=== PATIENT | female | born 1945 | race Caucasian/White ===

== ENCOUNTER 2019-12-22 20:36 | Emergency (ER) | payer MEDICARE, MEDICAID ==
[~2019-12-22] VITALS: Ht 149.8 cm; Wt 81.8 kg
[~2019-12-22 20:36] MED LIST: AC500T PO; ALBU0.8322 IH; ALBU8.5H2 IH; ALPR0.5T PO; AMLO10TA4 PO; ASPI-875 PO; BENZ200C25 PO; CALC-149 PO; CALC-78 PO; CARV12.53 PO; CETI10CA PO; CETI10TA17 PO; CHOL200035 PO; CLN.1T PO; CLOP75TA PO; DEXT1DRO7 OU; DULO60CA6 PO; FLUT16SP22 NS; FURO40TA4 PO; HYDR28.32 TOP; INSU100V SQ; INSU500V SC; INSU500V SQ; IPRA3AMP19 IH; KRIL1CAP2 PO; LIRA0.6P SQ; LORA10CA PO; LVF500T PO; MELO-15 PO; MELO-198 PO; MULT-608 PO; NTR.4SL SL; OLME1TAB25 PO; OMEG-12 PO; OMEG1CAP74 PO; OXYC-309 PO; OXYC-471 PO; OXYC1TAB87 PO; PNT40TEC PO; PREG75CA PO; RANI150C11 PO; RNT150T PO; ROSU20TA14 PO
[2019-12-22 20:45] VITALS: BP 206/94
--- NOTE | 2019-12-22 20:48 | ED Upper Extremity ---
General Chief Complaint: Upper Extremity Stated Complaint: SHOULDER PAIN Source: patient Exam Limitations: no limitations History of Present Illness Date Seen by Provider: Dec 22, 2019 Time Seen by Provider: 20:45 Initial Comments This is a 74-year-old female who presents via [facility] after sustaining a fall and injuring her left shoulder/arm. States she was taking out the trash when she slipped and fell and landed on her left side. Reports immediate sharp pain, rates 10/10, worse with movement. Denies hitting head, neck, no LOC. No other injuries reported. Allergies and Home Medications Allergies Coded Allergies: acetaminophen (Unverified Allergy, HIVES, 03/12/13) codeine (Unverified Allergy, COMA, 03/12/13) hydrocodone (Unverified Allergy, HIVES, 03/12/13) morphine (Unverified Allergy, NAUSEA VOMITING, 03/12/13) Home Medications Acetaminophen 500 Mg Tablet, 1-2 TAB PO Q6H PRN for PAIN, (Reported) TAKES 1-2 (500MG) TABLETS NEEDED FOR PAIN Albuterol 8.5 Gm Hfa.aer.ad, 2 PUFF IH Q6H PRN for SHORTNESS OF BREATH, (Reported) NEEDED FOR SHORTNESS OF BREATH Albuterol Sulfate/Ipratropium 3 Ml Solution, 3 ML IH Q4H PRN for SHORTNESS OF BREATH, (Reported) NEEDED FOR SHORTNESS OF BREATH Amlodipine Besylate 10 Mg Tablet, 10 MG PO DAILY, (Reported) Benzonatate 200 Mg Capsule, 200 MG PO TID PRN for COUGH, (Reported) NEEDED FOR COUGH Calcium Citrate/Vitamin D3 1 Each Tablet, 1 TAB PO DAILY, (Reported) Carvedilol 12.5 Mg Tablet, 12.5 MG PO BID, (Reported) WITH MEALS Cetirizine Hcl 10 Mg Capsule, 10 MG PO DAILY, (Reported) Cholecalciferol (Vitamin D3) 2,000 Unit Capsule, 2,000 UNIT PO DAILY, (Reported) Clonidine Hcl 0.1 Mg Tab, 0.1 MG PO TID, (Reported) Dextran 70/Hypromellose 1 Each Droperette, 1 DROP OU TID PRN for DRY EYES, (Reported) NEEDED FOR DRY EYES Duloxetine Hcl 60 Mg Capsule.dr, 60 MG PO HS, (Reported) Fluticasone Propionate 16 Gm Naspr, 2 SPRAYS NS DAILY, (Reported) Hydrocortisone 30 Gm Cr, 30 GM TOP PRN, (Reported) Insulin Regular Human Rec 500 U/Ml Vial, SQ DAILY, (Reported) MORNING BLOOD SUGAR READING LESS THAN 70 = NO INSULIN 70-99 = 3 UNITS 100- 149 = 11 UNITS 150-199 = 13 UNITS OVER 200 = 17 UNITS Insulin Regular Human Rec 500 U/Ml Vial, SC BID, (Reported) LUNCH AND DINNER BLOOD READING LESS THAN 70 = NO INSULIN 70-99 = 3 UNITS 100-149 = 8 UNITS 150-199 = 10 UNITS OVER 200 = 12 UNITS Krill Oil/[place]-3/Dha/Epa 1 Each Capsule, 1 CAP PO DAILY, (Reported) Liraglutide 0.6 Mg/0.1 Ml Pen.injctr, 6 MG SQ HS, (Reported) Meclofenamate Sodium 100 Mg Capsule, 100 MG PO DAILY, (Reported) Meloxicam 7.5 Mg Tablet, 7.5 MG PO DAILY, (Reported) Multivitamins 1 Tab Tablet, 1 TAB PO DAILY, (Reported) Nitroglycerin 0.4 Mg Tab, 0 SL PRN PRN, (Reported) 1 TABLET EVERY 5 MINUTES X 3 DOSES NEEDED FOR CHEST PAIN [place]/Hydrochlorothiazide 1 Tab Tablet, 1 TAB PO DAILY, (Reported) 40-25MG TABLET [place]-3/Dha/Epa/Fish Oil 1 Each Capsule.dr, 1 EACH PO DAILY, (Reported) Oxycodone HCl/Acetaminophen 1 Each Tablet, 1 EACH PO Q4H PRN for PAIN Prescribed by: RAPHAEL ZAPATA on 10/28/14 1014 Oxycodone HCl/Acetaminophen 1 Each Tablet, 1 EACH PO Q4H PRN for PAIN-SEVERE Prescribed by: REBECCA PÉREZ on 12/22/19 2131 Pantoprazole Sodium 40 Mg Tablet.dr, 40 MG PO DAILY, (Reported) Pregabalin 75 Mg Capsule, 75 MG PO Q12H, (Reported) Ranitidine Hcl 150 Mg Capsule, 150 MG PO BID, (Reported) Rosuvastatin Calcium 20 Mg Tablet, 20 MG PO HS, (Reported) Patient Home Medication List Home Medication List Reviewed: Yes Review of Systems Constitutional: no symptoms reported EENTM: no symptoms reported Respiratory: no symptoms reported Cardiovascular: no symptoms reported Gastrointestinal: no symptoms reported Musculoskeletal: see HPI Skin: no symptoms reported Psychiatric/Neurological: No Symptoms Reported Past Pqfvtbs-Kxlzxh-Uwumgw Hx Immunizations Up To Date Tetanus Booster (TDap): Less than 5yrs PED Vaccines UTD: No Date of Pneumonia Vaccine: Dec 12, 2013 Date of Influenza Vaccine: Nov 26, 2012 Past Medical History Asthma, Sleep Apnea Reproductive Disorders: No Female Reproductive Disorders: Denies Sexually Transmitted Disease: No HIV/AIDS: No UTI-Chronic Gastroesophageal Reflux, Chronic Constipation, Hiatal Hernia Arthritis, Fibromyalgia, Chronic Back Pain Diabetes, 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 Hearing Impairment: Denies Depression Adverse Reaction/Blood Tranf: No Family Medical History Family history: Arthritis 03 FATHER 09 SISTER Family history: Cardiovascular disease 03 FATHER Family history: Diabetes mellitus 03 MOTHER 09 BROTHER Family history: Gastrointestinal disease 09 BROTHER Family history: Hypertension 03 FATHER 03 MOTHER History of - respiratory disease 03 FATHER Psychotic disorder 03 MOTHER Physical Exam Vital Signs Vital Signs - First Documented 12/22/19 20:45 Temp 36.6 Pulse 75 Resp 18 B/P (MAP) 206/94 (131) Pulse Ox 98 O2 Delivery Nasal Cannula O2 Flow Rate 2.00 Capillary Refill : Height, Weight, BMI Height: 4'11.00" Weight: 235lbs. oz. 106.015611vg; BMI Method: General Appearance: WD/WN, no apparent distress HEENT: PERRL/EOMI, pharynx normal Neck: non-tender, full range of motion, supple, normal inspection Cardiovascular: regular rate, rhythm, no edema Respiratory: chest non-tender, lungs clear, normal breath sounds, no respiratory distress, no accessory muscle use Gastrointestinal: normal bowel sounds, non tender, soft Shoulder: deformity; No ecchymosis; limited ROM, pain, soft tissue tenderness Elbow/Forearm: normal inspection, non-tender, no evidence of injury Wrist: Yes no evidence of injury, Yes pain Neurologic/Tendon: normal sensation, normal motor functions, normal tendon functions, responds to pain Neurologic/Psychiatric: no motor/sensory deficits, alert, normal mood/affect, oriented x 3 Skin: normal color, warm/dry Limited range of motion, guarding left upper extremity. Neurovascular intact distal to injury. Progress/Results/Core Measures Results/Orders My Orders Orders - REBECCA PÉREZ APRN Shoulder, Left, 2 Views (12/22/19 20:45) Forearm, Left, 2 Views (12/22/19 20:45) Oxycodone/Apap 5/325mg Tablet (Percocet (12/22/19 21:45) Medications Given in ED Current Medications Medications Dose Ordered Sig/Rima Route Start Time Stop Time Status Last Admin Dose Admin Oxycodone/ Acetaminophen 1 tab ONCE ONCE PO 12/22/19 21:45 12/22/19 21:44 DC 12/22/19 21:38 1 TAB Vital Signs/I&O 12/22/19 20:45 Temp 36.6 Pulse 75 Resp 18 B/P (MAP) 206/94 (131) Pulse Ox 98 O2 Delivery Nasal Cannula O2 Flow Rate 2.00 Progress Progress Note : Progress Note Placed in shoulder immobilizer and ED. Tolerated well. Neurovascular intact pre- and post application of immobilizer. Discussed following up with orthopedic provider of choice, reviewed the plan of care and she is agreeable with plan. States has tolerated Oxycodone in the past and requested low dose for pain man agement. Diagnostic Imaging Diagonstic Imaging: Xray Plain Films/CT/US/NM/MRI: other (shoulder) Comments NAME: NEO BEVERLY MED REC#: [id number] PT STATUS: REG ER : 1945 PHYSICIAN: REBECCA PÉREZ APRN ADMIT DATE: 12/22/19/ER Signed Date of Exam:12/22/19 SHOULDER, LEFT, 2 VIEWS INDICATION: Left shoulder injury. COMPARISON: None. EXAMINATION: Two views of the left shoulder were obtained. FINDINGS: Acute slightly displaced proximal humeral fracture. Advanced degenerative change is seen involving the glenohumeral joint. There is no dislocation. IMPRESSION: Proximal humeral fracture. Dictated by: Dictated on workstation # [id number] Dict: 12/22/192109 Trans: 12/22/192128 [facility] [id number] Interpreted by: JHONATAN LANDA Electronically signed by: JHONATAN LANDA 12/22/192128 Diagonstic Imaging: Xray Plain Films/CT/US/NM/MRI: forearm Comments NAME: NEO BEVERLY MED REC#: [id number] PT STATUS: REG ER : 1945 PHYSICIAN: REBECCA PÉREZ APRN ADMIT DATE: 12/22/19/ER Signed Date of Exam:12/22/19 FOREARM, LEFT, 2 VIEWS INDICATION: Left forearm injury. COMPARISON: None. EXAMINATION: Two views of the left forearm were obtained. FINDINGS: No fracture or dislocation. Articular surfaces are age-appropriate. No foreign body is seen. IMPRESSION: No fracture or dislocation. Dictated by: Dictated on workstation # [id number] Dict: 12/22/192109 Trans: 12/22/192128 [facility] [id number] Interpreted by: JHONATAN LANDA Electronically signed by: JHONATAN LANDA 12/22/192128 Departure Impression Primary Impression: Proximal humerus fracture Disposition: 01 HOME, SELF-CARE Condition: Improved Departure-Patient Inst. Decision time for Depature: 21:20 Referrals: JACQUELYN FALK MD (PCP) Primary Care Physician Patient Instructions: How to Use a Shoulder Sling, Upper Arm Fracture Add. Discharge Instructions: Plan: 1. Discharge home. Keep shoulder immobilizer in place at all times, may remove for shower. Use shoulder sling while in the shower. 2. Take Hydrocodone 5/325mg tablet every 6 hours as needed for pain. 3. Follow up with Dr. Chanel next week. Office is [address] [place] [address] in [facility]. Please call [phone]. 4. May use ice 20 minutes at a time every 4-6 hours as needed for pain. 5. Return for any new or concerning symptoms. All discharge instructions reviewed with patient and/or family. Voiced understanding. Scripts Oxycodone HCl/Acetaminophen (Oxycodone-Acetaminophen 5-325) 1 Each Tablet 1 EACH PO Q4H PRN for PAIN-SEVERE MDD 6 for 7 Days, #30 TAB 0 Refills Prov: REEBCCA PÉREZ APRN 12/22/19 REBECCA PÉREZ APRN Dec 22, 2019 20:48
--- NOTE | 2019-12-22 21:13 | Diagnostic Imaging Report ---
INDICATION: Left shoulder injury. COMPARISON: None. EXAMINATION: Two views of the left shoulder were obtained. FINDINGS: Acute slightly displaced proximal humeral fracture. Advanced degenerative change is seen involving the glenohumeral joint. There is no dislocation. IMPRESSION: Proximal humeral fracture. Dictated by: Dictated on workstation # [id number]
--- NOTE | 2019-12-22 21:14 | Diagnostic Imaging Report ---
INDICATION: Left forearm injury. COMPARISON: None. EXAMINATION: Two views of the left forearm were obtained. FINDINGS: No fracture or dislocation. Articular surfaces are age-appropriate. No foreign body is seen. IMPRESSION: No fracture or dislocation. Dictated by: Dictated on workstation # [id number]
[2019-12-22] MEDS ORDERED: OXYC-471 PO (21:31)
[2019-12-22] MEDS ORDERED: oxyCODONE/APAP 5/325MG (PERCOCET 5) TABLET PO ONE (21:45)
== END 2019-12-22 21:44 | disposition home or self-care (01) ==
LOC: EDUNIT# 20:36 → ER 20:37
DX: S42.292A Other displaced fracture of upper end of left humerus, initial encounter for closed fracture (principal); K21.9 Gastro-esophageal reflux disease without esophagitis; G89.29 Other chronic pain; E11.9 Type 2 diabetes mellitus without complications; F32.9 Major depressive disorder, single episode, unspecified; M54.9 Dorsalgia, unspecified; Z82.61 Family history of arthritis; Z83.3 Family history of diabetes mellitus; Z82.49 Family history of ischemic heart disease and other diseases of the circulatory system; Z79.4 Long term (current) use of insulin; Z79.891 Long term (current) use of opiate analgesic; Z88.5 Allergy status to narcotic agent; Z88.6 Allergy status to analgesic agent; W01.0XXA Fall on same level from slipping, tripping and stumbling without subsequent striking against object, initial encounter
CPT/HCPCS: 73030; 73090; 99283

== ENCOUNTER 2020-01-26 04:23 | Emergency (ER) | payer MEDICARE, MEDICAID ==
[~2020-01-26] VITALS: Ht 180.3 cm; Wt 81.6 kg
--- NOTE | 2020-01-26 04:52 | ED General ---
General Chief Complaint: Glucose Problems Stated Complaint: HYPOGLYCEMIA History of Present Illness Date Seen by Provider: Jan 26, 2020 Time Seen by Provider: 04:47 Initial Comments Patient presenting to the emergency department for evaluation of a hypoglycemic episode as refill is having a hard time waking her up and they called 911 and her blood sugars found to be 40 and she was given an amp of D50 and her blood sugar went up to 190 and now she woke up completely almost immediately after getting the D50 and she says she feels back to normal denies any complaints. Family says that her blood sugar has been lower nights and patient reports she follows with an advanced practice nurse psychotherapist in [place] now. She is in no obvious distress with normal vital signs. Allergies and Home Medications Allergies Coded Allergies: acetaminophen (Unverified Allergy, HIVES, 03/12/13) codeine (Unverified Allergy, COMA, 03/12/13) hydrocodone (Unverified Allergy, HIVES, 03/12/13) morphine (Unverified Allergy, NAUSEA VOMITING, 03/12/13) Home Medications Acetaminophen 500 Mg Tablet, 1-2 TAB PO Q6H PRN for PAIN, (Reported) TAKES 1-2 (500MG) TABLETS NEEDED FOR PAIN Albuterol 8.5 Gm Hfa.aer.ad, 2 PUFF IH Q6H PRN for SHORTNESS OF BREATH, (Reported) NEEDED FOR SHORTNESS OF BREATH Albuterol Sulfate/Ipratropium 3 Ml Solution, 3 ML IH Q4H PRN for SHORTNESS OF BREATH, (Reported) NEEDED FOR SHORTNESS OF BREATH Amlodipine Besylate 10 Mg Tablet, 10 MG PO DAILY, (Reported) Benzonatate 200 Mg Capsule, 200 MG PO TID PRN for COUGH, (Reported) NEEDED FOR COUGH Calcium Citrate/Vitamin D3 1 Each Tablet, 1 TAB PO DAILY, (Reported) Carvedilol 12.5 Mg Tablet, 12.5 MG PO BID, (Reported) WITH MEALS Cetirizine Hcl 10 Mg Capsule, 10 MG PO DAILY, (Reported) Cholecalciferol (Vitamin D3) 2,000 Unit Capsule, 2,000 UNIT PO DAILY, (Reported) Clonidine Hcl 0.1 Mg Tab, 0.1 MG PO TID, (Reported) Dextran 70/Hypromellose 1 Each Droperette, 1 DROP OU TID PRN for DRY EYES, (Reported) NEEDED FOR DRY EYES Duloxetine Hcl 60 Mg Capsule.dr, 60 MG PO HS, (Reported) Fluticasone Propionate 16 Gm Naspr, 2 SPRAYS NS DAILY, (Reported) Hydrocortisone 30 Gm Cr, 30 GM TOP PRN, (Reported) Insulin Regular Human Rec 500 U/Ml Vial, SQ DAILY, (Reported) MORNING BLOOD SUGAR READING LESS THAN 70 = NO INSULIN 70-99 = 3 UNITS 100- 149 = 11 UNITS 150-199 = 13 UNITS OVER 200 = 17 UNITS Insulin Regular Human Rec 500 U/Ml Vial, SC BID, (Reported) LUNCH AND DINNER BLOOD READING LESS THAN 70 = NO INSULIN 70-99 = 3 UNITS 100-149 = 8 UNITS 150-199 = 10 UNITS OVER 200 = 12 UNITS Krill Oil/[place]-3/Dha/Epa 1 Each Capsule, 1 CAP PO DAILY, (Reported) Liraglutide 0.6 Mg/0.1 Ml Pen.injctr, 6 MG SQ HS, (Reported) Meclofenamate Sodium 100 Mg Capsule, 100 MG PO DAILY, (Reported) Meloxicam 7.5 Mg Tablet, 7.5 MG PO DAILY, (Reported) Multivitamins 1 Tab Tablet, 1 TAB PO DAILY, (Reported) Nitroglycerin 0.4 Mg Tab, 0 SL PRN PRN, (Reported) 1 TABLET EVERY 5 MINUTES X 3 DOSES NEEDED FOR CHEST PAIN [place]/Hydrochlorothiazide 1 Tab Tablet, 1 TAB PO DAILY, (Reported) 40-25MG TABLET [place]-3/Dha/Epa/Fish Oil 1 Each Capsule.dr, 1 EACH PO DAILY, (Reported) Oxycodone HCl/Acetaminophen 1 Each Tablet, 1 EACH PO Q4H PRN for PAIN Prescribed by: RAPHAEL ZAPATA on 10/28/14 1014 Oxycodone HCl/Acetaminophen 1 Each Tablet, 1 EACH PO Q4H PRN for PAIN-SEVERE Prescribed by: REBECCA PÉREZ on 12/22/19 2131 Pantoprazole Sodium 40 Mg Tablet.dr, 40 MG PO DAILY, (Reported) Pregabalin 75 Mg Capsule, 75 MG PO Q12H, (Reported) Ranitidine Hcl 150 Mg Capsule, 150 MG PO BID, (Reported) Rosuvastatin Calcium 20 Mg Tablet, 20 MG PO HS, (Reported) Patient Home Medication List Home Medication List Reviewed: Yes Review of Systems Review of Systems Constitutional: no symptoms reported EENTM: no symptoms reported Respiratory: no symptoms reported Cardiovascular: no symptoms reported Gastrointestinal: no symptoms reported Genitourinary: no symptoms reported Musculoskeletal: no symptoms reported Skin: no symptoms reported Psychiatric/Neurological: No Symptoms Reported All Other Systems Reviewed Negative Unless Noted: Yes Past Hkipcuy-Qiztbh-Cxhpon Hx Patient Social History Alcohol Use: Denies Use Recreational Drug Use: No 2nd Hand Smoke Exposure: No Recent Foreign Travel: No Contact w/Someone Who Travel: No Physical Abuse: No Sexual Abuse: No Mistreated: No Fear: No Immunizations Up To Date Tetanus Booster (TDap): Less than 5yrs PED Vaccines UTD: No Date of Pneumonia Vaccine: Dec 12, 2013 Date of Influenza Vaccine: Nov 26, 2012 Past Medical History Surgeries: Yes (CARPAL TUNNEL- BILAT, TOTAL KNEES X2, CATARACTS, R REVERSE SHOULDER,) Respiratory: Yes (WEARS O2 @ NIGHT, DOESNT USE CPAP, ) Asthma, Sleep Apnea Cardiac: Yes (STENTS PLACED 2005) Neurological: No Reproductive Disorders: No Female Reproductive Disorders: Denies Sexually Transmitted Disease: No HIV/AIDS: No UTI-Chronic Gastrointestinal: Yes (CONSTIPATION @ TIMES) Gastroesophageal Reflux, Chronic Constipation, Hiatal Hernia Musculoskeletal: Yes (FAILED KNEE REPLACEMENT, NEUROPATHY) Arthritis, Fibromyalgia, Chronic Back Pain Endocrine: Yes Diabetes, 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 Hearing Impairment: Denies Cancer: No Psychosocial: Yes (TAKES MEDS FOR DEPRESSION) Depression Integumentary: Yes (DIABETIC ULCERS ON ARMS AND LEG) Blood Disorders: No Adverse Reaction/Blood Tranf: No Family Medical History Family history: Arthritis 03 FATHER 09 SISTER Family history: Cardiovascular disease 03 FATHER Family history: Diabetes mellitus 03 MOTHER 09 BROTHER Family history: Gastrointestinal disease 09 BROTHER Family history: Hypertension 03 FATHER 03 MOTHER History of - respiratory disease 03 FATHER Psychotic disorder 03 MOTHER Physical Exam Vital Signs Capillary Refill : Height, Weight, BMI Height: 4'11.00" Weight: 235lbs. oz. 106.611253ga; 36.00 BMI Method: General Appearance: No Apparent Distress, WD/WN HEENT: PERRL/EOMI Neck: Supple Respiratory: Lungs Clear, No Respiratory Distress Cardiovascular: Regular Rate, Rhythm Gastrointestinal: Non Tender, Soft Back: Normal Inspection Neurologic/Psychiatric: Alert, Oriented x3, No Motor/Sensory Deficits Skin: Warm/Dry Progress/Results/Core Measures Suspected Sepsis SIRS Temperature: Pulse: Respiratory Rate: Blood Pressure / Mean: Results/Orders Lab Results Laboratory Tests Test 01/26/20 04:32 Range/Units Glucometer 192 H 70-110 MG/DL Vital Signs/I&O Capillary Refill : Progress Note : Progress Note Patient given a meal tray and her blood sugars stayed up. She has no complaints and appears well with normal vital signs. No need for extensive workup given she appears well with normal vital signs and is back to her neurologic baseline. I told her for the weekend to drop her short-acting and long-acting insulin by 5 units and to keep a close eye on her blood sugars and call her advanced practice nurse psychotherapist on Tuesday and reported what happened and get further instructions. Patient aware and agreeable with plan for discharge and verbalized understanding of the need for short-term follow-up and strict ED return precautions discussed inc luding worsening pain neurologic changes other general concerns. Departure Impression Primary Impression: Hypoglycemia Disposition: HOME, SELF-CARE Condition: Stable Departure-Patient Inst. Referrals: JACQUELYN FALK MD (PCP/Family) Primary Care Physician Patient Instructions: HYPOGLYCEMIA Add. Discharge Instructions: DROP EACH OF YOUR LONG ACTING AND SHORT ACTING INSULIN BY 5 UNITS. CHECK YOUR BLOOD SUGAR AT LEAST 4 TIMES A DAY AND DOCUMENT THEM. CALL YOUR MINISTER ON TUESDAY AND LET THEM KNOW WHAT HAPPENED, YOUR MEDICATION ADJUSTMENT AND HOW YOUR BLOOD SUGARS HAVE BEEN DOING. THANK YOU! All discharge instructions reviewed with patient and/or family. Voiced understanding. JUAN BANKS DO Jan 26, 2020 04:52
--- NOTE | 2020-01-26 04:59 | NUR ---
Pt was given a tv dinner to try to keep blood sugar up. BS will be rechecked at 0520 and 0550.
[2020-01-26] MEDS ORDERED: DEXTROSE 50% 50 ML (IMS) SYR ONE (05:22)
[2020-01-26] MEDS ORDERED: DEXTROSE 50% 50 ML (IMS) SYR IV ONE (05:30)
[2020-01-26 06:47] VITALS: BP 137/79
== END 2020-01-26 06:47 | disposition home or self-care (01) ==
LOC: EDUNIT# 04:23 → ER FS 04:27
DX: E11.649 Type 2 diabetes mellitus with hypoglycemia without coma (principal); G89.29 Other chronic pain; M54.9 Dorsalgia, unspecified; K21.9 Gastro-esophageal reflux disease without esophagitis; F32.9 Major depressive disorder, single episode, unspecified; J45.909 Unspecified asthma, uncomplicated; Z83.3 Family history of diabetes mellitus; Z82.61 Family history of arthritis; Z82.49 Family history of ischemic heart disease and other diseases of the circulatory system; Z95.5 Presence of coronary angioplasty implant and graft; Z88.5 Allergy status to narcotic agent; Z88.6 Allergy status to analgesic agent; Z79.4 Long term (current) use of insulin; Z79.891 Long term (current) use of opiate analgesic
CPT/HCPCS: 82962

== ENCOUNTER 2020-07-20 10:33 | Emergency (ER) | payer MEDICARE, MEDICAID ==
[~2020-07-20] VITALS: Ht 149.8 cm; Wt 81.6 kg
[~2020-07-20 10:33] MED LIST changes: -OXYC-471 PO; +OXYC1TAB11 PO
[2020-07-20] MEDS ORDERED: NS IV 1000 ML 1,000 ML IV STA (11:06)
[2020-07-20] MEDS ORDERED: ONDANSETRON 4 MG/2 ML (SDV) Z0FRAN IVP STA (11:07)
[2020-07-20 11:11] LABS: BASOPHILS % (AUTO) 0 % (0-10); EOSINOPHILS % (AUTO) 0 % (0-10); HEMATOCRIT 39 % (35-52); HEMOGLOBIN 13.2 G/DL (11.5-16.0); LYMPHOCYTES # (AUTO) 1.3 X 10^3 (1.0-4.0); LYMPHOCYTES % (AUTO) 14 % (12-44); MEAN CORPUSCULAR HEMOGLOBIN 29 PG (25-34); MEAN CORPUSCULAR HGB CONC 34 G/DL (32-36); MEAN CORPUSCULAR VOLUME 85 FL (80-99); MONOCYTES # (AUTO) 0.4 X 10^3 (0.0-1.0); MONOCYTES % (AUTO) 5 % (0-12); NEUTROPHILS # (AUTO) 7.8 X 10^3 (1.8-7.8); NEUTROPHILS % (AUTO) 81 % (42-75); PLATELET COUNT 309 10^3/uL (130-400); WHITE BLOOD COUNT 9.6 10^3/uL (4.3-11.0)
[2020-07-20 11:22] LABS: BILIRUBIN,URINE NEGATIVE (NEGATIVE); CLARITY,URINE CLEAR; COLOR,URINE YELLOW; GLUCOSE, URINE (UA) 3+ (NEGATIVE); KETONES,URINE TRACE (NEGATIVE); NITRITE,URINE NEGATIVE (NEGATIVE); PROTEIN,URINE NEGATIVE (NEGATIVE)
[2020-07-20 11:23] LABS: BACTERIA,URINE TRACE /HPF; LEUKOCYTE ESTERASE ,URINE NEGATIVE (NEGATIVE); RBC,URINE 0-2 /HPF; WBC,URINE 0-2 /HPF
--- NOTE | 2020-07-20 11:28 | ED GI ---
General Chief Complaint: Abdominal/GI Problems Stated Complaint: DIARRHEA Source of Information: Patient Exam Limitations: No Limitations History of Present Illness Date Seen by Provider: July 20, 2020 Time Seen by Provider: 10:35 Initial Comments 75 yo female presenting with 2 days of diarrhea. She did take imodium yesterday and it helped but then she still had 2 episodes of diarrhea today despite taking more imodium. She denies any blood in the diarrhea. No fever but has had chills. She has no pain with urination. She has not been able to eat due to lack of appetite and nothing sounds good. She denies any recent antibiotic use, camping, travel, change in food that she has eaten, ill contacts. Timing/Duration: 1-2 Days Activities at Onset: None Associated Symptoms: No Back Pain, No Chest Pain, No Diaphoresis; Fever/Chills (chills but denies fever), Fatigue; No Headache, No Heartburn, No Rash, No Shortness of Air, No Swelling/Mass in Abdomen, No Syncope, No Weakness Allergies and Home Medications Allergies Coded Allergies: acetaminophen (Unverified Allergy, HIVES, 03/12/13) codeine (Unverified Allergy, COMA, 03/12/13) hydrocodone (Unverified Allergy, HIVES, 03/12/13) morphine (Unverified Allergy, NAUSEA VOMITING, 03/12/13) Home Medications Acetaminophen 500 Mg Tablet, 1-2 TAB PO Q6H PRN for PAIN, (Reported) TAKES 1-2 (500MG) TABLETS NEEDED FOR PAIN Albuterol 8.5 Gm Hfa.aer.ad, 2 PUFF IH Q6H PRN for SHORTNESS OF BREATH, (Reported) NEEDED FOR SHORTNESS OF BREATH Albuterol Sulfate/Ipratropium 3 Ml Solution, 3 ML IH Q4H PRN for SHORTNESS OF BREATH, (Reported) NEEDED FOR SHORTNESS OF BREATH Amlodipine Besylate 10 Mg Tablet, 10 MG PO DAILY, (Reported) Benzonatate 200 Mg Capsule, 200 MG PO TID PRN for COUGH, (Reported) NEEDED FOR COUGH Calcium Citrate/Vitamin D3 1 Each Tablet, 1 TAB PO DAILY, (Reported) Carvedilol 12.5 Mg Tablet, 12.5 MG PO BID, (Reported) WITH MEALS Cetirizine Hcl 10 Mg Capsule, 10 MG PO DAILY, (Reported) Cholecalciferol (Vitamin D3) 2,000 Unit Capsule, 2,000 UNIT PO DAILY, (Reported) Clonidine Hcl 0.1 Mg Tab, 0.1 MG PO TID, (Reported) Dextran 70/Hypromellose 1 Each Droperette, 1 DROP OU TID PRN for DRY EYES, (Reported) NEEDED FOR DRY EYES Dicyclomine HCl 20 Mg Tablet, 20 MG PO QID PRN for diarrhea/nausea Prescribed by: DEBRA WHALEN on 07/20/20 1330 Duloxetine Hcl 60 Mg Capsule.dr, 60 MG PO HS, (Reported) Fluticasone Propionate 16 Gm Naspr, 2 SPRAYS NS DAILY, (Reported) Hydrocortisone 30 Gm Cr, 30 GM TOP PRN, (Reported) Insulin Regular Human Rec 500 U/Ml Vial, SQ DAILY, (Reported) MORNING BLOOD SUGAR READING LESS THAN 70 = NO INSULIN 70-99 = 3 UNITS 100- 149 = 11 UNITS 150-199 = 13 UNITS OVER 200 = 17 UNITS Insulin Regular Human Rec 500 U/Ml Vial, SC BID, (Reported) LUNCH AND DINNER BLOOD READING LESS THAN 70 = NO INSULIN 70-99 = 3 UNITS 100-149 = 8 UNITS 150-199 = 10 UNITS OVER 200 = 12 UNITS Krill Oil/Thor-3/Dha/Epa 1 Each Capsule, 1 CAP PO DAILY, (Reported) Liraglutide 0.6 Mg/0.1 Ml Pen.injctr, 6 MG SQ HS, (Reported) Meclofenamate Sodium 100 Mg Capsule, 100 MG PO DAILY, (Reported) Meloxicam 7.5 Mg Tablet, 7.5 MG PO DAILY, (Reported) Multivitamins 1 Tab Tablet, 1 TAB PO DAILY, (Reported) Nitroglycerin 0.4 Mg Tab, 0 SL PRN PRN, (Reported) 1 TABLET EVERY 5 MINUTES X 3 DOSES NEEDED FOR CHEST PAIN Olmesartn/Hydrochlorothiazide 1 Tab Tablet, 1 TAB PO DAILY, (Reported) 40-25MG TABLET Thor-3/Dha/Epa/Fish Oil 1 Each Capsule.dr, 1 EACH PO DAILY, (Reported) Oxycodone HCl/Acetaminophen 1 Each Tablet, 1 EACH PO Q4H PRN for PAIN Prescribed by: RAPHAEL ZAPATA on 10/28/14 1014 Oxycodone HCl/Acetaminophen 1 Each Tablet, 1 EACH PO Q4H PRN for PAIN-SEVERE Prescribed by: REBECCA PÉREZ on 12/22/192130 Pantoprazole Sodium 40 Mg Tablet.dr, 40 MG PO DAILY, (Reported) Pregabalin 75 Mg Capsule, 75 MG PO Q12H, (Reported) Ranitidine Hcl 150 Mg Capsule, 150 MG PO BID, (Reported) Rosuvastatin Calcium 20 Mg Tablet, 20 MG PO HS, (Reported) Patient Home Medication List Home Medication List Reviewed: Yes Review of Systems Review of Systems Constitutional: chills; No fever; malaise EENTM: No Symptoms Reported Respiratory: No Symptoms Reported Cardiovascular: No Symptoms Reported Gastrointestinal: See HPI; Denies Abdominal Pain; Diarrhea, Nausea; Denies Rectal Bleeding, Denies Vomiting Genitourinary: No Symptoms Reported Musculoskeletal: no symptoms reported Skin: no symptoms reported Psychiatric/Neurological: No Symptoms Reported Endocrine: No Symptoms Reported Past Lekdvsu-Etfdxg-Bghgfj Hx Past Med/Social Hx: Reviewed Nursing Past Med/Soc Hx Patient Social History Alcohol Use: Denies Use Smoking Status: Never a Smoker 2nd Hand Smoke Exposure: No Recent Hopitalizations: No Immunizations Up To Date Tetanus Booster (TDap): Less than 5yrs PED Vaccines UTD: No Date of Pneumonia Vaccine: Dec 12, 2013 Date of Influenza Vaccine: Nov 26, 2012 Seasonal Allergies Seasonal Allergies: No Past Medical History Surgeries: Yes (CARPAL TUNNEL- BILAT, TOTAL KNEES X2, CATARACTS, R REVERSE SHOULDER,) Respiratory: Yes (WEARS O2 @ NIGHT, DOESNT USE CPAP, ) Asthma, Sleep Apnea Cardiac: Yes (STENTS PLACED 2005) Neurological: No Reproductive Disorders: No Female Reproductive Disorders: Denies Sexually Transmitted Disease: No HIV/AIDS: No Genitourinary: No UTI-Chronic Gastrointestinal: Yes (CONSTIPATION @ TIMES) Gastroesophageal Reflux, Chronic Constipation, Hiatal Hernia Musculoskeletal: Yes (FAILED KNEE REPLACEMENT, NEUROPATHY) Arthritis, Fibromyalgia, Chronic Back Pain Endocrine: Yes Diabetes, 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 Hearing Impairment: Denies Cancer: No Psychosocial: Yes (TAKES MEDS FOR DEPRESSION) Depression Integumentary: Yes (DIABETIC ULCERS ON ARMS AND LEG) Blood Disorders: No Adverse Reaction/Blood Tranf: No Family Medical History Family history: Arthritis 03 FATHER 09 SISTER Family history: Cardiovascular disease 03 FATHER Family history: Diabetes mellitus 03 MOTHER 09 BROTHER Family history: Gastrointestinal disease 09 BROTHER Family history: Hypertension 03 FATHER 03 MOTHER History of - respiratory disease 03 FATHER Psychotic disorder 03 MOTHER Physical Exam Vital Signs Vital Signs - First Documented 07/20/20 10:33 Temp 36.5 Pulse 80 Resp 16 B/P (MAP) 196/77 (116) Pulse Ox 96 O2 Delivery Room Air Capillary Refill : Height/Weight/BMI Height: 4'11.00" Weight: 235lbs. oz. 106.519662ug; 25.00 BMI Method: General Appearance: WD/WN, no apparent distress HEENT: PERRL/EOMI; No pharynx normal (slightly dry mucous membranes) Neck: non-tender, full range of motion, supple, normal inspection Respiratory: chest non-tender, lungs clear, normal breath sounds Cardiovascular: normal peripheral pulses, regular rate, rhythm, systolic murmur (3/6 DELORIS) Gastrointestinal: non tender, soft, no pulsatile mass, abnormal bowel sounds (hyperactive); No distended, No guarding, No rebound, No tenderness Rectal: deferred Extremities: normal range of motion, normal capillary refill Neurologic/Psychiatric: alert, oriented x 3 Skin: normal color, warm/dry Images 1 - diffuse hyperactive bowel sounds but no tenderness to palpation Progress/Results/Core Measures Results/Orders Lab Results Laboratory Tests Test 07/20/20 10:59 07/20/20 11:05 07/20/20 11:15 Range/Units Glucometer 411 *H 70-110 MG/DL White Blood Count 9.6 4.3-11.0 10^3/uL Red Blood Count 4.56 4.35-5.85 10^6/uL Hemoglobin 13.2 11.5-16.0 G/DL Hematocrit 39 35-52 % Mean Corpuscular Volume 85 80-99 FL Mean Corpuscular Hemoglobin 29 25-34 PG Mean Corpuscular Hemoglobin Concent 34 32-36 G/DL Red Cell Distribution Width 13.2 10.0-14.5 % Platelet Count 309 130-400 10^3/uL Mean Platelet Volume 11.0 H 7.4-10.4 FL Immature Granulocyte % (Auto) 1 % Neutrophils (%) (Auto) 81 H 42-75 % Lymphocytes (%) (Auto) 14 12-44 % Monocytes (%) (Auto) 5 0-12 % Eosinophils (%) (Auto) 0 0-10 % Basophils (%) (Auto) 0 0-10 % Neutrophils # (Auto) 7.8 1.8-7.8 X 10^3 Lymphocytes # (Auto) 1.3 1.0-4.0 X 10^3 Monocytes # (Auto) 0.4 0.0-1.0 X 10^3 Eosinophils # (Auto) 0.0 0.0-0.3 10^3/uL Basophils # (Auto) 0.0 0.0-0.1 10^3/uL Immature Granulocyte # (Auto) 0.1 0.0-0.1 10^3/uL Sodium Level 134 L 135-145 MMOL/L Potassium Level 4.1 3.6-5.0 MMOL/L Chloride Level 96 L 98-107 MMOL/L Carbon Dioxide Level 27 21-32 MMOL/L Anion Gap 11 5-14 MMOL/L Blood Urea Nitrogen 9 7-18 MG/DL Creatinine 0.67 0.60-1.30 MG/DL Estimat Glomerular Filtration Rate > 60 BUN/Creatinine Ratio 13 Glucose Level 430 *H 70-105 MG/DL Calcium Level 9.7 8.5-10.1 MG/DL Corrected Calcium 9.9 8.5-10.1 MG/DL Total Bilirubin 0.6 0.1-1.0 MG/DL Aspartate Amino Transf (AST/SGOT) 28 5-34 U/L Alanine Aminotransferase (ALT/SGPT) 14 0-55 U/L Alkaline Phosphatase 122 40-136 U/L Total Protein 7.6 6.4-8.2 GM/DL Albumin 3.7 3.2-4.5 GM/DL Lipase 36 8-78 U/L Urine Color YELLOW Urine Clarity CLEAR Urine pH 6.0 5-9 Urine Specific [place] <=1.005 1.016-1.022 Urine Protein NEGATIVE NEGATIVE Urine Glucose (UA) 3+ H NEGATIVE Urine Ketones TRACE H NEGATIVE Urine Nitrite NEGATIVE NEGATIVE Urine Bilirubin NEGATIVE NEGATIVE Urine Urobilinogen 0.2 < = 1.0 MG/DL Urine Leukocyte Esterase NEGATIVE NEGATIVE Urine RBC (Auto) NEGATIVE NEGATIVE Urine RBC 0-2 /HPF Urine WBC 0-2 /HPF Urine Squamous Epithelial Cells 10-25 H /HPF Urine Crystals NONE /LPF Urine Bacteria TRACE /HPF Urine Casts NONE /LPF Urine Mucus NEGATIVE /LPF Urine Culture Indicated NO My Orders Orders - DEBRA WHALEN MD Comprehensive Metabolic Panel (07/20/20 11:06) Lipase (5/9/21 11:06) Ua Culture If Indicated (07/20/20 11:06) Ed Iv/Invasive Line Start (07/20/20 11:06) Cbc With Automated Diff (07/20/20 11:06) Ns Iv 1000 Ml (Sodium Chloride 0.9%) (07/20/20 11:06) Ondansetron Injection (Zofran Injectio (07/20/20 11:07) Ct Abdomen/Pelvis W (07/20/20 11:28) Iohexol Injection (Omnipaque 350 Mg/Ml 1 (07/20/20 11:45) Received Contrast (Hold Metformin- Contr (07/20/20 11:45) Sodium Chloride Flush (Catheter Flush Sy (07/20/20 11:45) Ns (Ivpb) (Sodium Chloride 0.9% Ivpb Bag (07/20/20 11:45) Stool Culture (07/20/20 12:05) Fecal Wbc (07/20/20 12:05) C Difficile Ag + Toxin A/B. (07/20/20 12:05) Parasite Complete Exam Stool (07/20/20 12:05) Isolation Central Supply Req (07/20/20 12:05) Occult Blood Stool (07/20/20 12:05) Diphenoxylate/Atropine Tablet (Lomotil T (07/20/20 12:50) Medications Given in ED Current Medications Medications Dose Ordered Sig/Rima Route Start Time Stop Time Status Last Admin Dose Admin Iohexol 100 ml ONCE ONCE IV 07/20/20 11:45 07/20/20 11:46 DC 07/20/20 11:57 100 ML Sodium Chloride 100 ml ONCE ONCE IV 07/20/20 11:45 07/20/20 11:46 DC 07/20/20 11:57 80 ML Vital Signs/I&O 07/20/20 07/20/20 10:33 13:32 Temp 36.5 36.5 Pulse 80 75 Resp 16 16 B/P (MAP) 196/77 (116) 177/81 (116) Pulse Ox 96 98 O2 Delivery Room Air Progress Progress Note #1: Progress Note Obtain basic labs and urinalysis as well as CT scan of the abdomen pelvis. If she has any diarrhea here we will send that for stool studies. Give IV fluids for hydration. Zofran 4 mg IV for nausea and upset stomach. Differential diagnosis includes gastroenteritis, diverticulitis, colitis, ischemic bowel, infectious diarrhea, food poisoning Progress Note #2: Progress Note Labs appear stable without acute significant abnormality other than hyperglycemia. Her CT scan did show diverticulosis but no diverticulitis. Reviewed with patient that we will give her medicine to completely stop her diarrhea since I cannot say if it was infectious or not. If it is infectious and I stop it it would fester and cause more issues with her bowel. We will give a single dose of Lomotil here to try and help with the diarrhea. Counseled to try Bentyl at home for nausea and vomiting see if it helps with her appetite. Check back with the clinic for continued concerns and problems. If she continues to have diarrhea collecting a specimen to do testing on would be most helpful. If she develops fever, uncontrolled vomiting, continued diarrhea or becomes dizzy or lightheaded return or seek medical care for further evaluation Diagnostic Imaging Diagonstic Imaging: CT Plain Films/CT/US/NM/MRI: abdomen, pelvis Comments [facility] [place], [place] NAME: [facility] REC#: [id number] PT STATUS: REG ER : 1945 PHYSICIAN: DEBRA WHALEN MD ADMIT DATE: 07/20/20/ER FS Signed Date of Exam:07/20/20 CT ABDOMEN/PELVIS W EXAMINATION: CT abdomen and pelvis with intravenous contrast. TECHNIQUE: Multiple contiguous axial images were obtained through the abdomen and pelvis after the uneventful administration of intravenous contrast. All CT scans use one or more of the following dose optimizing techniques: automated exposure control, MA and/or KvP adjustment based on patient size and exam type or iterative reconstruction. HISTORY: Diarrhea and nausea for 2 days. COMPARISON: None available. FINDINGS: The heart is unremarkable. The included lung bases are clear. The liver, spleen, pancreas, adrenal glands, and kidneys have a normal appearance. The gallbladder is surgically absent. There is no pathologically enlarged mesenteric or retroperitoneal adenopathy. The bowel loops are nondilated. Scattered diverticuli are seen in the descending and sigmoid colon without evidence of acute diverticulitis. There is no free fluid or free air. No acute osseous abnormalities. There is calcified aortic and iliac atherosclerotic plaque without aneurysm. Ureters and bladder are grossly normal. There is no free air, loculated collection, or adenopathy in the pelvis. IMPRESSION: 1. No acute abnormalities are seen in the abdomen and pelvis. No bowel obstruction, free fluid, or free air. 2. Scattered diverticuli without evidence of acute diverticulitis. Dictated by: Dictated on workstation # [id number] Dict: 07/20/20 1216 Trans: 07/20/20 1224 CV [id number] Interpreted by: QUYEN ALEXANDER DO Electronically signed by: QUYEN ALEXANDER DO 07/20/20 1224 Reviewed: Reviewed by Me Departure Impression Primary Impression: Diarrhea Qualified Codes: R19.7 - Diarrhea, unspecified Additional Impression: Hyperglycemia due to diabetes mellitus Disposition: 01 HOME, SELF-CARE Condition: Stable Departure-Patient Inst. Decision time for Depature: 13:27 Referrals: JACQUELYN FALK MD (PCP/Family) Primary Care Physician Patient Instructions: Diarrhea, Adult ED, How to Prevent High Blood Sugar Emergencies in Diabetes Add. Discharge Instructions: Try using the Dicyclomine (Bentyl) to help with slowing your diarrhea and settling your stomach so you can eat and drink better. If you can tolerate yogurt with active cultures that can help with replacing the good bacteria you need in your gut to help clear up the diarrhea. If you continue to have problems then check with clinic and you may need to provide a diarrhea stool specimen to have cultures and tests done to see what is causing the diarrhea. All discharge instructions reviewed with patient and/or family. Voiced understanding. Scripts Dicyclomine HCl (Dicyclomine HCl) 20 Mg Tablet 20 MG PO QID PRN for diarrhea/nausea for 5 Days, #20 TAB 0 Refills Prov: DEBRA WHALEN MD 07/20/20 DEBRA WHALEN MD July 20, 2020 11:28
[2020-07-20 11:29] LABS: BUN/CREATININE RATIO 13; CARBON DIOXIDE 27 MMOL/L (21-32); CHLORIDE 96 MMOL/L (98-107); CREATININE SERUM 0.67 MG/DL (0.60-1.30); GFR ESTIMATED > 60; POTASSIUM 4.1 MMOL/L (3.6-5.0); SODIUM 134 MMOL/L (135-145)
[2020-07-20 11:30] LABS: ALANINE AMINOTRANSFERASE 14 U/L (0-55); ALBUMIN 3.7 GM/DL (3.2-4.5); ALKALINE PHOSPHATASE 122 U/L (40-136); BILIRUBIN,TOTAL 0.6 MG/DL (0.1-1.0); CALCIUM 9.7 MG/DL (8.5-10.1); GLUCOSE 430 MG/DL (70-105); LIPASE 36 U/L (8-78); TOTAL PROTEIN 7.6 GM/DL (6.4-8.2)
[2020-07-20] MEDS ORDERED: IOHEXOL 350 MG/ML 100 ML (OMNIPAQUE 350) VIAL IV ONE (11:45)
[2020-07-20] MEDS ORDERED: NS 100 ML (IVPB) BAG IV ONE (11:45)
[2020-07-20] MEDS ORDERED: HOLD METFORMIN - RECEIVED CONTRAST 20 ML VIAL IV SCH (11:45)
[2020-07-20] MEDS ORDERED: CATHETER FLUSH 10 ML SYR IV PRN (11:45)
--- NOTE | 2020-07-20 12:23 | Diagnostic Imaging Report ---
EXAMINATION: CT abdomen and pelvis with intravenous contrast. TECHNIQUE: Multiple contiguous axial images were obtained through the abdomen and pelvis after the uneventful administration of intravenous contrast. All CT scans use one or more of the following dose optimizing techniques: automated exposure control, MA and/or KvP adjustment based on patient size and exam type or iterative reconstruction. HISTORY: Diarrhea and nausea for 2 days. COMPARISON: None available. FINDINGS: The heart is unremarkable. The included lung bases are clear. The liver, spleen, pancreas, adrenal glands, and kidneys have a normal appearance. The gallbladder is surgically absent. There is no pathologically enlarged mesenteric or retroperitoneal adenopathy. The bowel loops are nondilated. Scattered diverticuli are seen in the descending and sigmoid colon without evidence of acute diverticulitis. There is no free fluid or free air. No acute osseous abnormalities. There is calcified aortic and iliac atherosclerotic plaque without aneurysm. Ureters and bladder are grossly normal. There is no free air, loculated collection, or adenopathy in the pelvis. IMPRESSION: 1. No acute abnormalities are seen in the abdomen and pelvis. No bowel obstruction, free fluid, or free air. 2. Scattered diverticuli without evidence of acute diverticulitis. Dictated by: Dictated on workstation # [id number]
[2020-07-20] MEDS ORDERED: DIPHENOXYLATE/ATROPINE 2.5MG/0.025MG (LOMOTIL) TAB PO STA (12:50)
[2020-07-20] MEDS ORDERED: DICY20TA10 PO (13:30)
[2020-07-20 13:32] VITALS: BP 177/81
== END 2020-07-20 13:32 | disposition home or self-care (01) ==
LOC: EDUNIT# 10:33 → ER FS 10:34
DX: R19.7 Diarrhea, unspecified (principal); E11.65 Type 2 diabetes mellitus with hyperglycemia; K21.9 Gastro-esophageal reflux disease without esophagitis; G89.29 Other chronic pain; M54.9 Dorsalgia, unspecified; J45.909 Unspecified asthma, uncomplicated; F32.9 Major depressive disorder, single episode, unspecified; Z88.5 Allergy status to narcotic agent; Z88.6 Allergy status to analgesic agent; Z79.4 Long term (current) use of insulin; Z79.891 Long term (current) use of opiate analgesic; Z79.899 Other long term (current) drug therapy
CPT/HCPCS: 36415; 74177; 80053; 81000; 82947; 83690; 85025

== ENCOUNTER 2021-07-19 11:53 | Emergency (ER) | payer MEDICARE, MEDICAID ==
[~2021-07-19 11:53] MED LIST changes: +DICY20TA PO
[2021-07-19] MEDS ORDERED: LACTATED RINGERS 1,000 ML IV STA (12:08)
--- NOTE | 2021-07-19 12:08 | ED GI ---
General Stated Complaint: DIARRHEA; NAUSEA History of Present Illness Date Seen by Provider: July 19, 2021 Time Seen by Provider: 12:05 Initial Comments 76-year-old female presents with nausea, diarrhea and an episode of vomiting. She reports that she has felt "like crap" for like the last 3 days. She has had a subjective fever. She has been having diarrhea. She had her first episode of vomiting this morning. She is got some generalized body aches and malaise. An occasional mild cough but no shortness of breath. No chest pain, abdominal pain, urinary symptoms or flank pain reported. They report they have tried some Imodium and Gatorade at home. Allergies and Home Medications Allergies Coded Allergies: acetaminophen (Unverified Allergy, HIVES, 03/12/13) codeine (Unverified Allergy, COMA, 03/12/13) hydrocodone (Unverified Allergy, HIVES, 03/12/13) morphine (Unverified Allergy, NAUSEA VOMITING, 03/12/13) Patient Home Medication List Home Medication List Reviewed: Yes Acetaminophen (Tylenol) 500 Mg Tablet, 1-2 TAB PO Q6H PRN for PAIN, (Reported) Entered as Reported by: SHARRON ALCANTARA on 03/12/13 0947 Albuterol (Proair Hfa) 8.5 Gm Hfa.aer.ad, 2 PUFF IH Q6H PRN for SHORTNESS OF BREATH, (Reported) Entered as Reported by: SHARRON ALCANTARA on 03/12/13 0955 Albuterol Sulfate/Ipratropium (Duoneb 2.5-0.5 Mg/3 Ml Soln) 3 Ml Solution, 3 ML IH Q4H PRN for SHORTNESS OF BREATH, (Reported) Entered as Reported by: SHARRON ALCANTARA on 03/12/13 0958 Amlodipine Besylate (Norvasc) 10 Mg Tablet, 10 MG PO DAILY, (Reported) Entered as Reported by: SHARRON ALCANTARA on 03/12/13 0955 Benzonatate (Benzonatate) 200 Mg Capsule, 200 MG PO TID PRN for COUGH, (Rep orted) Entered as Reported by: SHARRON ALCANTARA on 03/12/13 0956 Calcium Citrate/Vitamin D3 (Citracal + D Maximum [place]) 1 Each Tablet, 1 TAB PO DAILY, (Reported) Entered as Reported by: SHARRON ALCANTARA on 03/20/13 1638 Carvedilol (Carvedilol) 12.5 Mg Tablet, 12.5 MG PO BID, (Reported) Entered as Reported by: SHARRON ALCANTARA on 03/12/13 0955 Cetirizine Hcl (Zyrtec) 10 Mg Capsule, 10 MG PO DAILY, (Reported) Entered as Reported by: MADALYN LAGUNAS on 10/16/14 1254 Cholecalciferol (Vitamin D3) (Vitamin D3) 2,000 Unit Capsule, 2,000 UNIT PO DAILY, (Reported) Entered as Reported by: SHARRON ALCANTARA on 03/20/13 1638 Clonidine Hcl (Catapres Tab) 0.1 Mg Tab, 0.1 MG PO TID, (Reported) Entered as Reported by: SHARRON ALCANTARA on 03/12/13 0955 Dextran 70/Hypromellose (Artificial Tears) 1 Each Droperette, 1 DROP OU TID PRN for DRY EYES, (Reported) Entered as Reported by: SHARRON ALCANTARA on 03/12/13 0947 Dicyclomine HCl (Dicyclomine HCl) 20 Mg Tablet, 20 MG PO QID PRN for diarrhea/nausea Prescribed by: DEBRA WHALEN on 07/20/20 1330 Duloxetine Hcl (Cymbalta) 60 Mg Capsule.dr, 60 MG PO HS, (Reported) Entered as Reported by: SHARRON ALCANTARA on 03/12/13 0955 Fluticasone Propionate (Flonase Nasal [place]) 16 Gm Naspr, 2 SPRAYS NS DAILY, (Reported) Entered as Reported by: SHARRON ALCANTARA on 03/12/13 0955 Hydrocortisone (Hydrocortisone Cr) 30 Gm Cr, 30 GM TOP PRN, (Reported) Entered as Reported by: MADALYN LAGUNAS on 10/16/14 1254 Insulin Regular Human Rec (Humulin R) 500 U/Ml Vial, SQ DAILY, (Reported) Entered as Reported by: SHARRON ALCANTARA on 03/20/13 1615 Insulin Regular Human Rec (Humulin R) 500 U/Ml Vial, SC BID, (Reported) Entered as Reported by: SHARRON ALCANTARA on 03/20/13 1619 Krill Oil/[place]-3/Dha/Epa ([place]-3 Krill Oil Softgel) 1 Each Capsule, 1 CAP PO DAILY, (Reported) Entered as Reported by: SHARRON ALCANTARA on 03/20/13 1638 Liraglutide (Victoza) 0.6 Mg/0.1 Ml Pen.injctr, 6 MG SQ HS, (Reported) Entered as Reported by: SHARRON ALCANTARA on 03/12/13 0947 Meclofenamate Sodium (Meclofenamate Sodium) 100 Mg Capsule, 100 MG PO DAILY, (Reported) Entered as Reported by: SHARRON ALCANTARA on 03/20/13 1638 Meloxicam (Meloxicam) 7.5 Mg Tablet, 7.5 MG PO DAILY, (Reported) Entered as Reported by: SHARRON ALCANTARA on 03/12/13 0956 Multivitamins (Multiple Vitamin) 1 Tab Tablet, 1 TAB PO DAILY, (Reported) Entered as Reported by: SHARRON ALCANTARA on 03/12/13 0947 Nitroglycerin (Nitrostat) 0.4 Mg Tab, 0 SL PRN PRN, (Reported) Entered as Reported by: SHARRON ALCANTARA on 03/12/13 0947 [place]artn/Hydrochlorothiazide (Benicar Hct 40-25 Mg Tablet) 1 Tab Tablet, 1 TAB PO DAILY, (Reported) Entered as Reported by: SHARRON ALCANTARA on 03/12/13 0955 [place]-3/Dha/Epa/Fish Oil (Fish Oil 1,000 Mg Ec Softgel) 1 Each Capsule.dr, 1 EACH PO DAILY, (Reported) Entered as Reported by: MADALYN LAGUNAS on 10/16/14 1254 Ondansetron (Ondansetron Odt) 4 Mg Tab.rapdis, 4 MG PO Q6H Prescribed by: CHAVA ROY on 07/19/21 1313 Oxycodone HCl/Acetaminophen (Oxycodone-Acetaminophen 5-325) 1 Each Tablet, 1 EACH PO Q4H PRN for PAIN Prescribed by: RAPHAEL ZAPATA on 10/28/14 1014 Oxycodone HCl/Acetaminophen (Oxycodone-Acetaminophen 5-325) 1 Each Tablet, 1 EACH PO Q4H PRN for PAIN-SEVERE Prescribed by: REBECCA PÉREZ on 12/22/19 2131 Pantoprazole Sodium (Protonix) 40 Mg Tablet.dr, 40 MG PO DAILY, (Reported) Entered as Reported by: SHARRON ALCANTARA on 03/12/13 09 Pregabalin (Lyrica) 75 Mg Capsule, 75 MG PO Q12H, (Reported) Entered as Reported by: SHARRON ALCANTARA on 03/12/13 09 Ranitidine Hcl (Ranitidine Hcl) 150 Mg Capsule, 150 MG PO BID, (Reported) Entered as Reported by: MADALYN LAGUNAS on 10/16/14 1254 Rosuvastatin Calcium (Crestor) 20 Mg Tablet, 20 MG PO HS, (Reported) Entered as Reported by: SHARRON ALCANTARA on 03/12/13 09 Sulfamethoxazole/Trimethoprim (Bactrim Ds Tablet) 1 Each Tablet, 1 EACH PO BID Prescribed by: CHAVA ROY on 07/19/21 1312 Review of Systems Review of Systems Constitutional: chills, fever, malaise EENTM: No Symptoms Reported Respiratory: See HPI, Cough; Denies Shortness of Air, Denies Wheezing Cardiovascular: Denies Chest Pain, Denies Irregular Heart Rate, Denies Lightheadedness Gastrointestinal: Denies Abdominal Pain; Diarrhea, Nausea, Poor Appetite, Vomiting Genitourinary: No Symptoms Reported Musculoskeletal: no symptoms reported Skin: no symptoms reported Psychiatric/Neurological: No Symptoms Reported Endocrine: No Symptoms Reported Past Gppihpd-Xiuhqk-Vthkup Hx Immunizations Up To Date Tetanus Booster (TDap): Less than 5yrs PED Vaccines UTD: No Seasonal Allergies Seasonal Allergies: No Past Medical History Surgeries: Yes (CARPAL TUNNEL- BILAT, TOTAL KNEES X2, CATARACTS, R REVERSE SHOULDER,) Respiratory: Yes (WEARS O2 @ NIGHT, DOESNT USE CPAP, ) Asthma, Sleep Apnea Cardiac: Yes (STENTS PLACED 2005) Neurological: No Reproductive Disorders: No Female Reproductive Disorders: Denies Sexually Transmitted Disease: No HIV/AIDS: No Genitourinary: No UTI-Chronic Gastrointestinal: Yes (CONSTIPATION @ TIMES) Gastroesophageal Reflux, Chronic Constipation, Hiatal Hernia Musculoskeletal: Yes (FAILED KNEE REPLACEMENT, NEUROPATHY) Arthritis, Fibromyalgia, Chronic Back Pain Endocrine: Yes Diabetes, 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 Hearing Impairment: Denies Cancer: No Psychosocial: Yes (TAKES MEDS FOR DEPRESSION) Depression Integumentary: Yes (DIABETIC ULCERS ON ARMS AND LEG) Blood Disorders: No Adverse Reaction/Blood Tranf: No Family Medical History Family history: Arthritis 03 FATHER 09 SISTER Family history: Cardiovascular disease 03 FATHER Family history: Diabetes mellitus 03 MOTHER 09 BROTHER Family history: Gastrointestinal disease 09 BROTHER Family history: Hypertension 03 FATHER 03 MOTHER History of - respiratory disease 03 FATHER Psychotic disorder 03 MOTHER Physical Exam Vital Signs Vital Signs - First Documented 07/19/21 12:00 Temp 35.0 Pulse 70 Resp 16 B/P (MAP) 158/66 (96) Pulse Ox 97 O2 Delivery Room Air Capillary Refill : Height/Weight/BMI Height: 4'11.00" Weight: 235lbs. oz. 106.993910cn; 36.00 BMI Method: General Appearance: no apparent distress HEENT: PERRL/EOMI Neck: non-tender, full range of motion Respiratory: lungs clear, normal breath sounds Cardiovascular: normal peripheral pulses, regular rate, rhythm Gastrointestinal: non tender, soft Extremities: non-tender, normal inspection Neurologic/Psychiatric: alert, normal mood/affect, oriented x 3 Skin: normal color, warm/dry Progress/Results/Core Measures Results/Orders Lab Results Laboratory Tests Test 07/19/21 12:00 07/19/21 12:07 07/19/21 12:18 Range/Units Urine Color YELLOW Urine Clarity CLEAR Urine pH 7.0 5-9 Urine Specific [place] 1.010 L 1.016-1.022 Urine Protein NEGATIVE NEGATIVE Urine Glucose (UA) 3+ H NEGATIVE Urine Ketones NEGATIVE NEGATIVE Urine Nitrite NEGATIVE NEGATIVE Urine Bilirubin NEGATIVE NEGATIVE Urine Urobilinogen 1.0 < = 1.0 MG/DL Urine Leukocyte Esterase NEGATIVE NEGATIVE Urine RBC (Auto) NEGATIVE NEGATIVE Urine RBC 2-5 H /HPF Urine WBC 10-25 H /HPF Urine Squamous Epithelial Cells 5-10 /HPF Urine Crystals NONE /LPF Urine Bacteria FEW H /HPF Urine Casts NONE /LPF Urine Mucus SMALL H /LPF Urine Culture Indicated YES White Blood Count 8.3 4.3-11.0 10^3/uL Red Blood Count 4.86 3.80-5.11 10^6/uL Hemoglobin 14.3 11.5-16.0 g/dL Hematocrit 42 35-52 % Mean Corpuscular Volume 86 80-99 fL Mean Corpuscular Hemoglobin 29 25-34 pg Mean Corpuscular Hemoglobin Concent 34 32-36 g/dL Red Cell Distribution Width 12.8 10.0-14.5 % Platelet Count 221 130-400 10^3/uL Mean Platelet Volume 12.4 H 9.0-12.2 fL Immature Granulocyte % (Auto) 0 % Neutrophils (%) (Auto) 74 42-75 % Lymphocytes (%) (Auto) 19 12-44 % Monocytes (%) (Auto) 6 0-12 % Eosinophils (%) (Auto) 0 0-10 % Basophils (%) (Auto) 1 0-10 % Neutrophils # (Auto) 6.1 1.8-7.8 10^3/uL Lymphocytes # (Auto) 1.6 1.0-4.0 10^3/uL Monocytes # (Auto) 0.5 0.0-1.0 10^3/uL Eosinophils # (Auto) 0.0 0.0-0.3 10^3/uL Basophils # (Auto) 0.0 0.0-0.1 10^3/uL Immature Granulocyte # (Auto) 0.0 0.0-0.1 10^3/uL Sodium Level 132 L 135-145 MMOL/L Potassium Level 4.1 3.6-5.0 MMOL/L Chloride Level 94 L 98-107 MMOL/L Carbon Dioxide Level 26 21-32 MMOL/L Anion Gap 12 5-14 MMOL/L Blood Urea Nitrogen 18 7-18 MG/DL Creatinine 0.75 0.60-1.30 MG/DL Estimat Glomerular Filtration Rate 83 BUN/Creatinine Ratio 24 Glucose Level 359 H 70-105 MG/DL Calcium Level 9.7 8.5-10.1 MG/DL Corrected Calcium 9.6 8.5-10.1 MG/DL Total Bilirubin 0.8 0.1-1.0 MG/DL Aspartate Amino Transf (AST/SGOT) 79 H 5-34 U/L Alanine Aminotransferase (ALT/SGPT) 19 0-55 U/L Alkaline Phosphatase 67 40-136 U/L C-Reactive Protein < 0.30 <0.50 MG/DL Total Protein 8.3 H 6.4-8.2 GM/DL Albumin 4.1 3.2-4.5 GM/DL Lipase 45 8-78 U/L Influenza Type A Antigen NEGATIVE NEGATIVE Influenza Type B Antigen NEGATIVE NEGATIVE My Orders Orders - CHAVA ROY DO Cbc With Automated Diff (07/19/21 12:08) Comprehensive Metabolic Panel (07/19/21 12:08) Lipase (07/19/21 12:08) Ua Culture If Indicated (07/19/21 12:08) Crp Fs (07/19/21 12:08) Influenza A & B Antigens (07/19/21 12:08) Ondansetron Injection (Zofran Injectio (07/19/21 12:15) Lactated Ringers (Lr 1000 Ml Iv Solution (07/19/21 12:08) Abdomen Flat & Upright/Decub (07/19/21 ) Urine Culture (07/19/21 12:00) Medications Given in ED Current Medications Medications Dose Ordered Sig/Rima Route Start Time Stop Time Status Last Admin Dose Admin Ondansetron HCl 4 mg ONCE ONCE IVP 07/19/21 12:15 07/19/21 12:16 DC 07/19/21 12:14 4 MG Vital Signs/I&O 07/19/21 07/19/21 12:00 13:08 Temp 35.0 36.5 Pulse 70 71 Resp 16 16 B/P (MAP) 158/66 (96) 170/71 Pulse Ox 97 97 O2 Delivery Room Air Room Air Progress Progress Note : Progress Note Patient with a likely viral gastroenteritis with some mild dehydration. She is feeling better following IV fluids. Patient's urine does show potential urinary tract infection. She is having a few minor symptoms she relate later in the visit. I will treat her with Bactrim. Patient stable and discharged home Diagnostic Imaging Diagonstic Imaging: Xray Plain Films/CT/US/NM/MRI: abdomen Comments Date of Exam:07/19/21 ABDOMEN FLAT & UPRIGHT/DECUB INDICATION: Nausea, vomiting, diarrhea x3 days. TECHNIQUE: Supine and upright view of the abdomen 12:22 PM CORRELATION STUDY: None FINDINGS: Visualized lung bases are clear with what appears be at least mild cardiac enlargement. Cholecystectomy clips in the right upper quadrant of the abdomen. Mild amount of gas and stool through the colon. No abnormality dilated loops of bowel or air-fluid levels suggest high degree bowel obstruction. No definitive pathologic intra-abdominal calcifications. Mild leftward curvature lumbar spine with advanced degenerative changes of the spine. IMPRESSION: 1. Nonobstructed appearing bowel gas pattern. Departure Impression Primary Impression: Viral gastroenteritis Additional Impression: Acute cystitis without hematuria Disposition: 01 HOME, SELF-CARE Condition: Stable Departure-Patient Inst. Referrals: JACQUELYN FALK MD (PCP/Family) Primary Care Physician Patient Instructions: Viral Gastroenteritis, Adult (DC), Diarrhea, Adult ED, Urinary Tract Infection, Adult (DC) Add. Discharge Instructions: Drink plenty of fluid You can continue Lomotil as needed Follow-up with your primary care provider in 5 to 6 days if symptoms or not improving Scripts Ondansetron (Ondansetron Odt) 4 Mg Tab.rapdis 4 MG PO Q6H for Vomiting, #20 TAB . Prov: CHAVA ROY DO 07/19/21 Sulfamethoxazole/Trimethoprim (Bactrim Ds Tablet) 1 Each Tablet 1 EACH PO BID, #6 TAB Prov: CHAVA ROY DO 07/19/21 CHAVA ROY DO July 19, 2021 12:08
[2021-07-19] MEDS ORDERED: ONDANSETRON 4 MG/2 ML (SDV) Z0FRAN IVP ONE (12:15)
[2021-07-19 12:16] LABS: BILIRUBIN,URINE NEGATIVE (NEGATIVE); CLARITY,URINE CLEAR; COLOR,URINE YELLOW; GLUCOSE, URINE (UA) 3+ (NEGATIVE); KETONES,URINE NEGATIVE (NEGATIVE); LEUKOCYTE ESTERASE ,URINE NEGATIVE (NEGATIVE); NITRITE,URINE NEGATIVE (NEGATIVE); PROTEIN,URINE NEGATIVE (NEGATIVE)
[2021-07-19 12:19] LABS: BASOPHILS % (AUTO) 1 % (0-10); EOSINOPHILS % (AUTO) 0 % (0-10); HEMATOCRIT 42 % (35-52); HEMOGLOBIN 14.3 g/dL (11.5-16.0); LYMPHOCYTES # (AUTO) 1.6 10^3/uL (1.0-4.0); LYMPHOCYTES % (AUTO) 19 % (12-44); MEAN CORPUSCULAR HEMOGLOBIN 29 pg (25-34); MEAN CORPUSCULAR HGB CONC 34 g/dL (32-36); MEAN CORPUSCULAR VOLUME 86 fL (80-99); MEAN PLATELET VOLUME 12.4 fL (9.0-12.2); MONOCYTES # (AUTO) 0.5 10^3/uL (0.0-1.0); MONOCYTES % (AUTO) 6 % (0-12); NEUTROPHILS # (AUTO) 6.1 10^3/uL (1.8-7.8); NEUTROPHILS % (AUTO) 74 % (42-75); PLATELET COUNT 221 10^3/uL (130-400); WHITE BLOOD COUNT 8.3 10^3/uL (4.3-11.0)
[2021-07-19 12:22] LABS: BACTERIA,URINE FEW /HPF
--- NOTE | 2021-07-19 12:33 | Diagnostic Imaging Report ---
INDICATION: Nausea, vomiting, diarrhea x3 days. TECHNIQUE: Supine and upright view of the abdomen 12:22 PM CORRELATION STUDY: None FINDINGS: Visualized lung bases are clear with what appears be at least mild cardiac enlargement. Cholecystectomy clips in the right upper quadrant of the abdomen. Mild amount of gas and stool through the colon. No abnormality dilated loops of bowel or air-fluid levels suggest high degree bowel obstruction. No definitive pathologic intra-abdominal calcifications. Mild leftward curvature lumbar spine with advanced degenerative changes of the spine. IMPRESSION: 1. Nonobstructed appearing bowel gas pattern. Dictated by: Dictated on workstation # [id number]
[2021-07-19 12:39] LABS: SODIUM 132 MMOL/L (135-145)
[2021-07-19 12:47] LABS: ALANINE AMINOTRANSFERASE 19 U/L (0-55); ALBUMIN 4.1 GM/DL (3.2-4.5); ALKALINE PHOSPHATASE 67 U/L (40-136); BILIRUBIN,TOTAL 0.8 MG/DL (0.1-1.0); BUN/CREATININE RATIO 24; CALCIUM 9.7 MG/DL (8.5-10.1); CARBON DIOXIDE 26 MMOL/L (21-32); CHLORIDE 94 MMOL/L (98-107); CREATININE SERUM 0.75 MG/DL (0.60-1.30); GFR ESTIMATED 83; GLUCOSE 359 MG/DL (70-105); LIPASE 45 U/L (8-78); TOTAL PROTEIN 8.3 GM/DL (6.4-8.2)
[2021-07-19 12:59] LABS: POTASSIUM 4.1 MMOL/L (3.6-5.0)
[2021-07-19 13:08] VITALS: BP 170/71
[2021-07-19] MEDS ORDERED: SULF1TAB38 PO (13:12)
[2021-07-19] MEDS ORDERED: ONDA4TAB11 PO ×2 (13:13→13:28)
== END 2021-07-19 13:18 | disposition home or self-care (01) ==
LOC: EDUNIT# 11:53 → ER FS 11:56
DX: A08.4 Viral intestinal infection, unspecified (principal); N30.00 Acute cystitis without hematuria; E11.9 Type 2 diabetes mellitus without complications; Z79.4 Long term (current) use of insulin
CPT/HCPCS: 36415; 74019; 80053; 81000; 83690; 85025; 86141; 87088; 87804

== ENCOUNTER 2021-07-26 09:34 | Emergency (ER) | payer MEDICARE, MEDICAID ==
[~2021-07-26 09:34] MED LIST changes: +ONDA4TAB11 PO; +SULF1TAB38 PO
[2021-07-26 09:56] LABS: BILIRUBIN,URINE NEGATIVE (NEGATIVE); CLARITY,URINE CLEAR; COLOR,URINE YELLOW; GLUCOSE, URINE (UA) 3+ (NEGATIVE); KETONES,URINE TRACE (NEGATIVE); LEUKOCYTE ESTERASE ,URINE NEGATIVE (NEGATIVE); NITRITE,URINE NEGATIVE (NEGATIVE); PH,URINE 7.5 (5-9); PROTEIN,URINE NEGATIVE (NEGATIVE)
--- NOTE | 2021-07-26 09:57 | ED GU-Female ---
General Chief Complaint: - Reproductive Stated Complaint: BACK PAIN, TROUBLE URINATING History of Present Illness Date Seen by Provider: July 26, 2021 Time Seen by Provider: 09:44 Initial Comments 76-year-old female with PMH of CHF is here with complaints of dysuria and right flank pain which has been going on for the past 2 days. Pain is a 5-6/10, and is intermittent and colicky in nature. Denies fever, chest pain, hematuria, shortness of breath. Allergies and Home Medications Allergies Coded Allergies: acetaminophen (Unverified Allergy, HIVES, 03/12/13) codeine (Unverified Allergy, COMA, 03/12/13) hydrocodone (Unverified Allergy, HIVES, 03/12/13) morphine (Unverified Allergy, NAUSEA VOMITING, 03/12/13) Patient Home Medication List Home Medication List Reviewed: Yes Acetaminophen (Tylenol) 500 Mg Tablet, 1-2 TAB PO Q6H PRN for PAIN, (Reported) Entered as Reported by: SHARRON ALCANTARA on 03/12/13 0947 Albuterol (Proair Hfa) 8.5 Gm Hfa.aer.ad, 2 PUFF IH Q6H PRN for SHORTNESS OF BREATH, (Reported) Entered as Reported by: SHARRON ALCANTARA on 03/12/13 0955 Albuterol Sulfate/Ipratropium (Duoneb 2.5-0.5 Mg/3 Ml Soln) 3 Ml Solution, 3 ML IH Q4H PRN for SHORTNESS OF BREATH, (Reported) Entered as Reported by: SHARRON ALCANTARA on 03/12/13 0958 Amlodipine Besylate (Norvasc) 10 Mg Tablet, 10 MG PO DAILY, (Reported) Entered as Reported by: SHARRON ALCANTARA on 03/12/13 0955 Benzonatate (Benzonatate) 200 Mg Capsule, 200 MG PO TID PRN for COUGH, (Reported) Entered as Reported by: SHARRON ALCANTARA on 03/12/13 0956 Calcium Citrate/Vitamin D3 (Citracal + D Maximum [place]) 1 Each Tablet, 1 TAB PO DAILY, (Reported) Entered as Reported by: SHARRON ALCANTARA on 03/20/13 1638 Carvedilol (Carvedilol) 12.5 Mg Tablet, 12.5 MG PO BID, (Reported) Entered as Reported by: SHARRON ALCANTARA on 03/12/13 0955 Cetirizine Hcl (Zyrtec) 10 Mg Capsule, 10 MG PO DAILY, (Reported) Entered as Reported by: MADALYN LAGUNAS on 10/16/14 1254 Cholecalciferol (Vitamin D3) (Vitamin D3) 2,000 Unit Capsule, 2,000 UNIT PO DAILY, (Reported) Entered as Reported by: SHARRON ALCANTARA on 03/20/13 1638 Clonidine Hcl (Catapres Tab) 0.1 Mg Tab, 0.1 MG PO TID, (Reported) Entered as Reported by: SHARRON ALCANTARA on 03/12/13 0955 Dextran 70/Hypromellose (Artificial Tears) 1 Each Droperette, 1 DROP OU TID PRN for DRY EYES, (Reported) Entered as Reported by: SHARRON ALCANTARA on 03/12/13 0947 Dicyclomine HCl (Dicyclomine HCl) 20 Mg Tablet, 20 MG PO QID PRN for diarrhea/nausea Prescribed by: DEBRA WHALEN on 07/20/20 1330 Duloxetine Hcl (Cymbalta) 60 Mg Capsule.dr, 60 MG PO HS, (Reported) Entered as Reported by: SHARRON ALCANTARA on 03/12/13 0955 Fluticasone Propionate (Flonase Nasal [place]) 16 Gm Naspr, 2 SPRAYS NS DAILY, (Reported) Entered as Reported by: SHARRON ALCANTARA on 03/12/13 0955 Hydrocortisone (Hydrocortisone Cr) 30 Gm Cr, 30 GM TOP PRN, (Reported) Entered as Reported by: MADALYN LAGUNAS on 10/16/14 1254 Insulin Regular Human Rec (Humulin R) 500 U/Ml Vial, SQ DAILY, (Reported) Entered as Reported by: SHARRON ALCANTARA on 03/20/13 1615 Insulin Regular Human Rec (Humulin R) 500 U/Ml Vial, SC BID, (Reported) Entered as Reported by: SHARRON ALCANTARA on 03/20/13 1619 Krill Oil/[place]-3/Dha/Epa ([place]-3 Krill Oil Softgel) 1 Each Capsule, 1 CAP PO DAILY, (Reported) Entered as Reported by: SHARRON ALCANTARA on 03/20/13 1638 Liraglutide (Victoza) 0.6 Mg/0.1 Ml Pen.injctr, 6 MG SQ HS, (Reported) Entered as Reported by: SHARRON ALCANTARA on 03/12/13 0947 Meclofenamate Sodium (Meclofenamate Sodium) 100 Mg Capsule, 100 MG PO DAILY, (Reported) Entered as Reported by: SHARRON ALCANTARA on 03/20/13 1638 Meloxicam (Meloxicam) 7.5 Mg Tablet, 7.5 MG PO DAILY, (Reported) Entered as Reported by: SHARRON ALCANTARA on 03/12/13 0956 Multivitamins (Multiple Vitamin) 1 Tab Tablet, 1 TAB PO DAILY, (Reported) Entered as Reported by: SHARRON ALCANTARA on 03/12/13 0947 Nitroglycerin (Nitrostat) 0.4 Mg Tab, 0 SL PRN PRN, (Reported) Entered as Reported by: SHARRON ALCANTARA on 03/12/13 0947 [place]/Hydrochlorothiazide (Benicar Hct 40-25 Mg Tablet) 1 Tab Tablet, 1 TAB PO DAILY, (Reported) Entered as Reported by: SHARRON ALCANTARA on 03/12/13 0955 [place]-3/Dha/Epa/Fish Oil (Fish Oil 1,000 Mg Ec Softgel) 1 Each Capsule.dr, 1 EACH PO DAILY, (Reported) Entered as Reported by: MADALYN LAGUNAS on 10/16/14 1254 Ondansetron (Ondansetron Odt) 4 Mg Tab.rapdis, 4 MG PO Q6H Prescribed by: CHAVA ROY on 07/19/21 1328 Oxycodone HCl/Acetaminophen (Oxycodone-Acetaminophen 5-325) 1 Each Tablet, 1 EACH PO Q4H PRN for PAIN Prescribed by: RAPHAEL ZAPATA on 10/28/14 1014 Oxycodone HCl/Acetaminophen (Oxycodone-Acetaminophen 5-325) 1 Each Tablet, 1 EACH PO Q4H PRN for PAIN-SEVERE Prescribed by: REBECCA PÉREZ on 12/22/19 2131 Pantoprazole Sodium (Protonix) 40 Mg Tablet.dr, 40 MG PO DAILY, (Reported) Entered as Reported by: SHARRON ALCANTARA on 03/12/13 0955 Pregabalin (Lyrica) 75 Mg Capsule, 75 MG PO Q12H, (Reported) Entered as Reported by: SHARRON ALCANTARA on 03/12/13 0955 Ranitidine Hcl (Ranitidine Hcl) 150 Mg Capsule, 150 MG PO BID, (Reported) Entered as Reported by: MADALYN LAGUNAS on 10/16/14 1254 Rosuvastatin Calcium (Crestor) 20 Mg Tablet, 20 MG PO HS, (Reported) Entered as Reported by: SHARRON ALCANTARA on 03/12/13 0955 Sulfamethoxazole/Trimethoprim (Bactrim Ds Tablet) 1 Each Tablet, 1 EACH PO BID Prescribed by: CHAVA ROY on 07/19/21 1312 Review of Systems Review of Systems Constitutional: no symptoms reported EENTM: no symptoms reported Respiratory: no symptoms reported Cardiovascular: no symptoms reported Gastrointestinal: no symptoms reported Genitourinary: dysuria, flank pain Musculoskeletal: no symptoms reported Skin: no symptoms reported Psychiatric/Neurological: No Symptoms Reported Endocrine: No Symptoms Reported Hematologic/Lymphatic: No Symptoms Reported Past Scgkngk-Tjwkrq-Xhfgoo Hx Patient Social History Tobacco Use?: No Substance use?: No Alcohol Use?: No Pt feels they are or have been: No Immunizations Up To Date Tetanus Booster (TDap): Less than 5yrs PED Vaccines UTD: No First/Initial COVID19 Vaccinat: 05/06/20 Second COVID19 Vaccination [place]: 06/03/20 Third COVID19 Vaccination Date: 05/06/20 Seasonal Allergies Seasonal Allergies: No Past Medical History Surgery/Hospitalization HX: Cholecysectomy; Appendectomy; Tonsilectomy; Bilateral knee replacement; Carpal tunnel release; Hysterectomy; Cataract removal; Type 2 DM; Heart murmur; COPD; HTN Surgeries: Yes (CARPAL TUNNEL- BILAT, TOTAL KNEES X2, CATARACTS, R REVERSE SHOULDER,) Respiratory: Yes (WEARS O2 @ NIGHT, DOESNT USE CPAP, ) Asthma, Sleep Apnea Cardiac: Yes (STENTS PLACED 2005) Neurological: No Reproductive Disorders: No Female Reproductive Disorders: Denies Sexually Transmitted Disease: No HIV/AIDS: No Genitourinary: No UTI-Chronic Gastrointestinal: Yes (CONSTIPATION @ TIMES) Gastroesophageal Reflux, Chronic Constipation, Hiatal Hernia Musculoskeletal: Yes (FAILED KNEE REPLACEMENT, NEUROPATHY) Arthritis, Fibromyalgia, Chronic Back Pain Endocrine: Yes Diabetes, 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 Hearing Impairment: Denies Cancer: No Psychosocial: Yes (TAKES MEDS FOR DEPRESSION) Depression Integumentary: Yes (DIABETIC ULCERS ON ARMS AND LEG) Blood Disorders: No Adverse Reaction/Blood Tranf: No Family Medical History Family history: Arthritis 03 FATHER 09 SISTER Family history: Cardiovascular disease 03 FATHER Family history: Diabetes mellitus 03 MOTHER 09 BROTHER Family history: Gastrointestinal disease 09 BROTHER Family history: Hypertension 03 FATHER 03 MOTHER History of - respiratory disease 03 FATHER Psychotic disorder 03 MOTHER Physical Exam Vital Signs Vital Signs - First Documented 07/26/21 09:39 Temp 36.6 Pulse 68 Resp 16 B/P (MAP) 192/98 (129) Pulse Ox 96 O2 Delivery Room Air Capillary Refill : Height, Weight, BMI Height: 4'11.00" Weight: 235lbs. oz. 106.801569gt; 36.00 BMI Method: General Appearance: no apparent distress HEENT: PERRL/EOMI Neck: full range of motion Cardiovascular: regular rate, rhythm Respiratory: lungs clear Gastrointestinal: normal bowel sounds, non tender, soft Back: CVA tenderness (R) Extremities: normal range of motion Neurologic/Psychiatric: alert, normal mood/affect, oriented x 3 Skin: normal color Progress/Results/Core Measures Suspected Sepsis SIRS Temperature: Pulse: Respiratory Rate: Laboratory Tests 07/26/21 10:08: White Blood Count 7.1 Blood Pressure / Mean: Laboratory Tests 07/26/21 10:08: Creatinine 0.94, Platelet Count 216 Results/Orders Lab Results Laboratory Tests Test 07/26/21 09:40 07/26/21 10:08 Range/Units Urine Color YELLOW Urine Clarity CLEAR Urine pH 7.5 5-9 Urine Specific [place] 1.010 L 1.016-1.022 Urine Protein NEGATIVE NEGATIVE Urine Glucose (UA) 3+ H NEGATIVE Urine Ketones TRACE H NEGATIVE Urine Nitrite NEGATIVE NEGATIVE Urine Bilirubin NEGATIVE NEGATIVE Urine Urobilinogen 1.0 < = 1.0 MG/DL Urine Leukocyte Esterase NEGATIVE NEGATIVE Urine RBC (Auto) NEGATIVE NEGATIVE Urine RBC 2-5 H /HPF Urine WBC 10-25 H /HPF Urine Squamous Epithelial Cells 5-10 /HPF Urine Crystals NONE /LPF Urine Bacteria FEW H /HPF Urine Casts NONE /LPF Urine Mucus SMALL H /LPF Urine Culture Indicated YES White Blood Count 7.1 4.3-11.0 10^3/uL Red Blood Count 4.39 3.80-5.11 10^6/uL Hemoglobin 13.1 11.5-16.0 g/dL Hematocrit 38 35-52 % Mean Corpuscular Volume 87 80-99 fL Mean Corpuscular Hemoglobin 30 25-34 pg Mean Corpuscular Hemoglobin Concent 34 32-36 g/dL Red Cell Distribution Width 12.5 10.0-14.5 % Platelet Count 216 130-400 10^3/uL Mean Platelet Volume 11.1 9.0-12.2 fL Immature Granulocyte % (Auto) 0 % Neutrophils (%) (Auto) 68 42-75 % Lymphocytes (%) (Auto) 23 12-44 % Monocytes (%) (Auto) 6 0-12 % Eosinophils (%) (Auto) 2 0-10 % Basophils (%) (Auto) 1 0-10 % Neutrophils # (Auto) 4.8 1.8-7.8 10^3/uL Lymphocytes # (Auto) 1.6 1.0-4.0 10^3/uL Monocytes # (Auto) 0.4 0.0-1.0 10^3/uL Eosinophils # (Auto) 0.2 0.0-0.3 10^3/uL Basophils # (Auto) 0.1 0.0-0.1 10^3/uL Immature Granulocyte # (Auto) 0.0 0.0-0.1 10^3/uL Sodium Level 134 L 135-145 MMOL/L Potassium Level 4.5 3.6-5.0 MMOL/L Chloride Level 96 L 98-107 MMOL/L Carbon Dioxide Level 27 21-32 MMOL/L Anion Gap 11 5-14 MMOL/L Blood Urea Nitrogen 21 H 7-18 MG/DL Creatinine 0.94 0.60-1.30 MG/DL Estimat Glomerular Filtration Rate 64 BUN/Creatinine Ratio 22 Glucose Level 253 H 70-105 MG/DL Calcium Level 9.7 8.5-10.1 MG/DL My Orders Orders - ANA MONSIVAIS MD Ct Abdomen/Pelvis Wo (07/26/21 09:51) Basic Metabolic Panel (07/26/21 09:52) Cbc With Automated Diff (07/26/21 09:52) Ua Culture If Indicated (07/26/21 09:52) Urine Culture (07/26/21 09:40) Vital Signs/I&O 07/26/21 09:39 Temp 36.6 Pulse 68 Resp 16 B/P (MAP) 192/98 (129) Pulse Ox 96 O2 Delivery Room Air Capillary Refill : Progress Note : Progress Note 1. ACUTE CYSTITIS: RIGHT FLANK PAIN/ SUPRAPUBIC PAIN - CT ABD: unremarkable, negative for pyelonephritis or kidney stones - CBC/ BMP unremarkable with normal white count - UA: positive for RBC, WBC, some bacteria. Nitrite and LE negative. - Pt has finished a course of Bactrim last week for UTI. - Prescription given for Nitrofurantoin bid for 7 days - F/u with PCP in the next 3 days - Pt's glucose level is high in the ER, but she has not taken her AM insulin and she states she will go home and take it , and does not want insulin in the ER. -The patient was seen in the ED, and treated appropriately to presentation at a specific point in time. Patient is informed that there is a possibility that disease and illness can evolve and change in acuity rapidly or slowly after patient is discharged from the ER. Precautionary advice given to the patient for immediate return to ER if symptoms worsen or do not resolve, and to seek emergency care sooner rather than later. Pt also advised on the importance of PCP follow up and compliance with management and follow up plan with PCP and/or specialist, as this is part of the management plan. Pt verbally expressed understanding. Diagnostic Imaging Diagonstic Imaging: CT Plain Films/CT/US/NM/MRI: abdomen Comments [facility], [place] NAME: NEO BEVERLY [facility] REC#: [id number] PT STATUS: REG ER : 1945 PHYSICIAN: ANA MONSIVAIS MD ADMIT DATE: 07/26/21/ER FS Draft Date of Exam:07/26/21 CT ABDOMEN/PELVIS WO CT ABDOMEN/PELVIS WO TECHNIQUE: Unenhanced CT imaging of the abdomen and pelvis was performed. 2-D reformats are created and submitted for interpretation. Automatic exposure controls were utilized to optimize patient dose. INDICATION: Right flank pain COMPARISON: 07/20/2020 FINDINGS: Evaluation of the abdominal viscera is suboptimal without contrast. Lower chest: The lung bases are clear. No pericardial or pleural effusion. Peritoneum: No free intraperitoneal air or fluid. Liver and biliary system: There is the suggestion of nodularity of the liver surface raising the possibility of cirrhosis. No focal hepatic lesion by noncontrast imaging. Cholecystectomy. Spleen and Pancreas: Spleen is normal. Unenhanced pancreas is grossly normal. Adrenals: Normal. tract: No renal or ureteral calculi. Stable low-attenuation cyst in the mid left kidney. No obstructive uropathy. The urinary bladder is decompressed, limiting assessment. Hysterectomy. GI tract: Stomach is decompressed. No bowel obstruction. Descending and sigmoid colon diverticulosis without diverticulitis. The appendix is not seen and may be surgically absent. No inflammatory change in the right lower quadrant. Vasculature and Lymph nodes: Normal caliber aorta has severe atherosclerotic plaquing. No abdominal or pelvic lymphadenopathy. Musculoskeletal: No concerning osseous lesion. Multilevel degenerative changes in the lumbar spine are most advanced at L2-L3. IMPRESSION: 1. No acute obstructive or inflammatory process. 3. No urinary tract calculi. Dictated on workstation # [id number] Dict: 07/26/21 1025 Trans: 07/26/[address] [place] [address] [id number] Interpreted by: DEJUAN BARRERA MD Electronically signed by: Departure Impression Primary Impression: UTI (urinary tract infection) Qualified Codes: N30.01 - Acute cystitis with hematuria Disposition: HOME, SELF-CARE Condition: Stable Departure-Patient Inst. Referrals: JACQUELYN FALK MD (PCP/Family) Primary Care Physician Patient Instructions: Urinary Tract Infection, Adult (DC) Add. Discharge Instructions: -Nitrofurantoin 100 mg twice daily for 7 days -Adequate hydration advised -Follow-up with PCP within the next 3 days. -Patient instructed to take her home insulin when she gets home and to eat something for breakfast. -Return to ER symptoms do not resolve or if it worsens. All discharge instructions reviewed with patient and/or family. Voiced understanding. ANA MONSIVAIS MD July 26, 2021 09:57
[2021-07-26 09:58] LABS: BACTERIA,URINE FEW /HPF
[2021-07-26 10:09] LABS: BASOPHILS # (AUTO) 0.1 10^3/uL (0.0-0.1); BASOPHILS % (AUTO) 1 % (0-10); EOSINOPHILS # (AUTO) 0.2 10^3/uL (0.0-0.3); EOSINOPHILS % (AUTO) 2 % (0-10); HEMATOCRIT 38 % (35-52); HEMOGLOBIN 13.1 g/dL (11.5-16.0); LYMPHOCYTES # (AUTO) 1.6 10^3/uL (1.0-4.0); LYMPHOCYTES % (AUTO) 23 % (12-44); MEAN CORPUSCULAR HEMOGLOBIN 30 pg (25-34); MEAN CORPUSCULAR HGB CONC 34 g/dL (32-36); MEAN CORPUSCULAR VOLUME 87 fL (80-99); MEAN PLATELET VOLUME 11.1 fL (9.0-12.2); MONOCYTES # (AUTO) 0.4 10^3/uL (0.0-1.0); MONOCYTES % (AUTO) 6 % (0-12); NEUTROPHILS # (AUTO) 4.8 10^3/uL (1.8-7.8); NEUTROPHILS % (AUTO) 68 % (42-75); PLATELET COUNT 216 10^3/uL (130-400); WHITE BLOOD COUNT 7.1 10^3/uL (4.3-11.0)
[2021-07-26 10:34] LABS: CALCIUM 9.7 MG/DL (8.5-10.1); CREATININE SERUM 0.94 MG/DL (0.60-1.30); POTASSIUM 4.5 MMOL/L (3.6-5.0)
--- NOTE | 2021-07-26 10:38 | Diagnostic Imaging Report ---
CT ABDOMEN/PELVIS WO TECHNIQUE: Unenhanced CT imaging of the abdomen and pelvis was performed. 2-D reformats are created and submitted for interpretation. Automatic exposure controls were utilized to optimize patient dose. INDICATION: Right flank pain COMPARISON: 07/20/2020 FINDINGS: Evaluation of the abdominal viscera is suboptimal without contrast. Lower chest: The lung bases are clear. No pericardial or pleural effusion. Peritoneum: No free intraperitoneal air or fluid. Liver and biliary system: There is the suggestion of nodularity of the liver surface raising the possibility of cirrhosis. No focal hepatic lesion by noncontrast imaging. Cholecystectomy. Spleen and Pancreas: Spleen is normal. Unenhanced pancreas is grossly normal. Adrenals: Normal. tract: No renal or ureteral calculi. Stable low-attenuation cyst in the mid left kidney. No obstructive uropathy. The urinary bladder is decompressed, limiting assessment. Hysterectomy. GI tract: Stomach is decompressed. No bowel obstruction. Descending and sigmoid colon diverticulosis without diverticulitis. The appendix is not seen and may be surgically absent. No inflammatory change in the right lower quadrant. Vasculature and Lymph nodes: Normal caliber aorta has severe atherosclerotic plaquing. No abdominal or pelvic lymphadenopathy. Musculoskeletal: No concerning osseous lesion. Multilevel degenerative changes in the lumbar spine are most advanced at L2-L3. IMPRESSION: 1. No acute obstructive or inflammatory process. 3. No urinary tract calculi. Dictated by: Dictated on workstation # [id number]
[2021-07-26] MEDS ORDERED: NITR100C PO (10:53)
[2021-07-26 10:56] VITALS: BP 191/72
== END 2021-07-26 10:56 | disposition home or self-care (01) ==
LOC: EDUNIT# 09:34 → ER FS 09:36
DX: N30.01 Acute cystitis with hematuria (principal); I11.0 Hypertensive heart disease with heart failure; I50.9 Heart failure, unspecified; E11.40 Type 2 diabetes mellitus with diabetic neuropathy, unspecified; J45.909 Unspecified asthma, uncomplicated; G47.30 Sleep apnea, unspecified; Z99.81 Dependence on supplemental oxygen; Z86.31 Personal history of diabetic foot ulcer; Z90.49 Acquired absence of other specified parts of digestive tract; Z90.710 Acquired absence of both cervix and uterus; Z95.5 Presence of coronary angioplasty implant and graft; Z79.4 Long term (current) use of insulin
CPT/HCPCS: 36415; 74176; 80048; 81000; 85025; 87088

== ENCOUNTER → 2021-08-11 | Outpatient (CLI) | payer MEDICARE, MEDICAID ==
[~2021-08-11] MED LIST changes: +NITR100C PO
== END ==
LOC: CARD 14:31
PROVIDERS: ATTEND Family Medicine
DX: I08.2 Rheumatic disorders of both aortic and tricuspid valves (principal); I50.9 Heart failure, unspecified
CPT/HCPCS: 93306

== ENCOUNTER → 2022-04-07 | Outpatient (CLI) | payer MEDICARE, MEDICAID ==
[2022-04-07 10:42] LABS: BASOPHILS # (AUTO) 0.1 10^3/uL (0.0-0.1); BASOPHILS % (AUTO) 1 % (0-10); EOSINOPHILS # (AUTO) 0.1 10^3/uL (0.0-0.3); EOSINOPHILS % (AUTO) 0 % (0-10); HEMATOCRIT 41 % (35-52); HEMOGLOBIN 14.2 g/dL (11.5-16.0); LYMPHOCYTES % (AUTO) 17 % (12-44); MEAN CORPUSCULAR HEMOGLOBIN 30 pg (25-34); MEAN CORPUSCULAR HGB CONC 34 g/dL (32-36); MEAN CORPUSCULAR VOLUME 86 fL (80-99); MONOCYTES # (AUTO) 0.7 10^3/uL (0.0-1.0); MONOCYTES % (AUTO) 6 % (0-12); NEUTROPHILS # (AUTO) 8.9 10^3/uL (1.8-7.8); NEUTROPHILS % (AUTO) 76 % (42-75); PLATELET COUNT 329 10^3/uL (130-400); WHITE BLOOD COUNT 11.7 10^3/uL (4.3-11.0)
[2022-04-07 11:13] LABS: CALCIUM 10.2 MG/DL (8.5-10.1); CREATININE SERUM 0.89 MG/DL (0.60-1.30); POTASSIUM 4.7 MMOL/L (3.6-5.0)
== END ==
LOC: LAB FS 10:24
PROVIDERS: ATTEND Family Medicine
DX: E11.65 Type 2 diabetes mellitus with hyperglycemia (principal)
CPT/HCPCS: 36415; 80048; 85025

== ENCOUNTER 2022-08-13 19:12 | Emergency (ER) | payer MEDICARE, MEDICAID ==
[~2022-08-13 19:12] MED LIST changes: +ASPI81TA64 PO; +CALC-822 PO; +CITA20TA9 PO; +DULO60CA59 PO; +EMPA25TA PO; +FERR-84 PO; +FISH1CAP15 PO; +INSU100I48 SC; +INSU300I SC; +LIRA0.6P SC; +MELO15TA39 PO; +MULTIVIT PO; +MV,I66.7 PO; +OLME-11 PO; +PANT40TA52 PO; +PREG150C46 PO; +PROBIOT PO; +ROSU20TA32 PO; +TRZ50T PO; +VIT1CAPS44 PO
[2022-08-13 19:31] LABS: BILIRUBIN,URINE NEGATIVE (NEGATIVE); CLARITY,URINE CLEAR; COLOR,URINE YELLOW; GLUCOSE, URINE (UA) 3+ (NEGATIVE); KETONES,URINE NEGATIVE (NEGATIVE); LEUKOCYTE ESTERASE ,URINE NEGATIVE (NEGATIVE); NITRITE,URINE NEGATIVE (NEGATIVE); PROTEIN,URINE NEGATIVE (NEGATIVE)
[2022-08-13 19:33] LABS: BACTERIA,URINE MODERATE /HPF
[2022-08-13] MEDS ORDERED: cefTRIAXone IV/IM 1,000 MG in NS (IVPB) 50 ML IV ONE (19:45)
[2022-08-13] MEDS ORDERED: cefTRIAXone PRE-MIX 50 ML IV ONE ×2 (19:45→20:00)
[2022-08-13] MEDS ORDERED: NS IV 500 ML 500 ML IV SCH (19:45)
[2022-08-13 19:47] LABS: BASOPHILS # (AUTO) 0.1 10^3/uL (0.0-0.1); BASOPHILS % (AUTO) 0 % (0-10); EOSINOPHILS # (AUTO) 0.2 10^3/uL (0.0-0.3); EOSINOPHILS % (AUTO) 1 % (0-10); HEMATOCRIT 36 % (35-52); HEMOGLOBIN 12.6 g/dL (11.5-16.0); LYMPHOCYTES # (AUTO) 2.4 10^3/uL (1.0-4.0); LYMPHOCYTES % (AUTO) 19 % (12-44); MEAN CORPUSCULAR HEMOGLOBIN 29 pg (25-34); MEAN CORPUSCULAR HGB CONC 35 g/dL (32-36); MEAN CORPUSCULAR VOLUME 84 fL (80-99); MEAN PLATELET VOLUME 11.3 fL (9.0-12.2); MONOCYTES # (AUTO) 1.1 10^3/uL (0.0-1.0); MONOCYTES % (AUTO) 9 % (0-12); NEUTROPHILS # (AUTO) 8.7 10^3/uL (1.8-7.8); NEUTROPHILS % (AUTO) 70 % (42-75); PLATELET COUNT 218 10^3/uL (130-400); WHITE BLOOD COUNT 12.4 10^3/uL (4.3-11.0)
--- NOTE | 2022-08-13 20:01 | ED Back Pain ---
General Chief Complaint: Back Problems Stated Complaint: R SIDE LOWER BACK PAIN Nursing Triage Note: Pt complaining of right flank pain that started this morning Source of Information: Patient, Family (Son) Exam Limitations: No Limitations History of Present Illness Date Seen by Provider: Aug 13, 2022 Time Seen by Provider: 19:20 Initial Comments 77-year-old female patient with history of chronic back pain and frequent UTI presented POV with complaining of low back pain since this morning as a constant and sharp pain and rated her pain 10/10. Patient denies radiation of the pain, new focal neurodeficit, patient complaining of urinary frequency and dysuria since last night and states her urine had a foul smell. Patient stated she was at [facility] in [place] today for presurgical evaluation for left elbow pain at arrival to ER her blood sugar reading was 376. Patient states that she did not follow-up with diabetic diet but took her medication today. Patient states she did not take any prescribed or xswd-vny-[id number] pain medication and unable to take narcotic pain medication and wants to take Tylenol when she gets home. Allergies and Home Medications Allergies Coded Allergies: acetaminophen (Unverified Allergy, Unknown, HIVES, 11/19/21) codeine (Unverified Allergy, Unknown, COMA, 11/19/21) hydrocodone (Unverified Allergy, Unknown, HIVES, 11/19/21) morphine (Unverified Allergy, Unknown, NAUSEA VOMITING, 11/19/21) Patient Home Medication List Home Medication List Reviewed: Yes Aspirin (Children's Aspirin) 81 Mg Tab.chew, 81 MG PO DAILY Prescribed by: LIV GARCIA on 04/23/22 1056 Calcium Citrate/Vitamin D3 (Calcium Citrate - Vit D Caplet) 315 Mg Calcium-5 Mcg (200 Unit) Tablet, 1 EACH PO BID, (Reported) Entered as Reported by: АЛЕКСАНДР MARQUEZ on 04/22/22 1451 Carvedilol (Carvedilol) 12.5 Mg Tablet, 12.5 MG PO BID, (Reported) Entered as Reported by: АЛЕКСАНДР MARQUEZ on 04/22/22 1451 Citalopram Hydrobromide (Citalopram HBr) 20 Mg Tablet, 20 MG PO DAILY, (Reported) Entered as Reported by: АЛЕКСАНДР MARQUEZ on 04/22/22 145 Cyclobenzaprine HCl (Cyclobenzaprine HCl) 5 Mg Tablet, 5 MG PO TID PRN for muscle pain Prescribed by: Shauna vaughn on 08/13/222031 Duloxetine HCl (Duloxetine HCl) 60 Mg Capsule.dr, 60 MG PO HS, (Reported) Entered as Reported by: АЛЕКСАНДР MARQUEZ on 04/22/221450 Empagliflozin (Jardiance) 25 Mg Tablet, 25 MG PO DAILY, (Reported) Entered as Reported by: АЛЕКСАНДР MARQUEZ on 04/22/221450 Ferrous Sulfate (Iron) 325 Mg (65 Mg Iron) Tablet, 325 MG PO DAILY, (Reported) Entered as Reported by: АЛЕКСАНДР MARQUEZ on 04/22/221450 Fish Oil/Dha/Epa (Fish Oil 1,200 mg Fish Oil) 1,200 Mg-144 Mg-216 Mg Capsule, 1 EACH PO DAILY, (Reported) Entered as Reported by: АЛЕКСАНДР MARQUEZ on 04/22/221450 Furosemide (Furosemide) 40 Mg Tablet, 40 MG PO DAILY, (Reported) Entered as Reported by: АЛЕКСАНДР MARQUEZ on 04/22/221450 Insulin Glargine,Hum.rec.anlog (Toujeo Solostar) 300 Unit/Ml (1.5 Ml) Insuln.pen, 44 UNITS SC HS, (Reported) Entered as Reported by: АЛЕКСАНДР MARQUEZ on 04/22/221450 Insulin Lispro (Insulin Lispro Kwikpen U-100) 100 Unit/Ml Insuln.pen, 42 UNITS SC AC, (Reported) Entered as Reported by: АЛЕКСАНДР MARQUEZ on 04/22/221450 Liraglutide (Victoza 2-Ryan) 0.6 Mg/0.1 Ml (18 Mg/3 Ml) Pen.injctr, 1.8 MG SC DAILY, (Reported) Entered as Reported by: АЛЕКСАНДР MARQUEZ on 04/22/221450 Meloxicam (Meloxicam) 15 Mg Tablet, 15 MG PO DAILY, (Reported) Entered as Reported by: АЛЕКСАНДР MARQUEZ on 04/22/221450 Mv,Iron,Min/Folic Acid/Biotin (Hair, Skin & Nails Softgel) 66.7 Mcg-1,666.7 Mcg Capsule, 1 EA PO DAILY, (Reported) Entered as Reported by: АЛЕКСАНДР MARQUEZ on 04/22/221450 Olmesartan/Hydrochlorothiazide (Olmesartan-Hctz 40-25 mg Tab) 40 Mg-25 Mg Tablet, 1 EA PO DAILY, (Reported) Entered as Reported by: АЛЕКСАНДР MARQUEZ on 04/22/221450 Pantoprazole Sodium (Pantoprazole Sodium) 40 Mg Tablet.dr, 40 MG PO DAILY, (Reported) Entered as Reported by: АЛЕКСАНДР MARQUEZ on 04/22/221450 Pregabalin (Pregabalin) 150 Mg Capsule, 150 MG PO BID, (Reported) Entered as Reported by: АЛЕКСАНДР MARQUEZ on 04/22/221450 Rosuvastatin Calcium (Rosuvastatin Calcium) 20 Mg Tablet, 20 MG PO DAILY, (Reported) Entered as Reported by: АЛЕКСАНДР MARQUEZ on 04/22/221450 Sulfamethoxazole/Trimethoprim (Bactrim Ds Tablet) 1 Each Tablet, 1 EACH PO BID Prescribed by: Shauna vaughn on 08/13/222031 Trazodone HCl (Trazodone HCl) 50 Mg Tablet, 50 MG PO HS, (Reported) Entered as Reported by: АЛЕКСАНДР MARQUEZ on 04/22/221450 Vit C/E/Zn/Coppr/Lutein/Zeaxan (Preservision Areds 2 Softgel) 250MG-90MG Ca psule, 1 EACH PO DAILY, (Reported) Entered as Reported by: АЛЕКСАНДР MARQUEZ on 04/22/221450 [Multivit W/ Probiot] , 1 EA PO DAILY, (Reported) Entered as Reported by: АЛЕКСАНДР MARQUEZ on 04/22/221450 Review of Systems Constitutional: see HPI EENTM: see HPI Respiratory: see HPI Cardiovascular: see HPI Gastrointestinal: see HPI Genitourinary: see HPI Musculoskeletal: see HPI Skin: see HPI Psychiatric/Neurological: No Symptoms Reported, See HPI All Other Systems Reviewed Negative Unless Noted: Yes Past Dqvkkwk-Ygtvgk-Fetanf Hx Patient Social History Tobacco Use?: No Use of E-Cig and/or Vaping dev: No Substance use?: No Alcohol Use?: No Pt feels they are or have been: No Immunizations Up To Date Tetanus Booster (TDap): Less than 5yrs PED Vaccines UTD: No First/Initial COVID19 Vaccinat: 223/21 Second COVID19 Vaccination Castillo: 06/03/20 Third COVID19 Vaccination Date: 2021 Seasonal Allergies Seasonal Allergies: No Past Medical History Surgery/Hospitalization HX: Cholecysectomy; Appendectomy; Tonsilectomy; Bilateral knee replacement; Carpal tunnel release; Hysterectomy; Cataract removal; Type 2 DM; Heart murmur; COPD; HTN Surgeries: Yes (CARPAL TUNNEL- BILAT, TOTAL KNEES X2, CATARACTS, R REVERSE SHOULDER,) Respiratory: Yes (WEARS O2 @ NIGHT, DOESNT USE CPAP, ) Asthma, Sleep Apnea Cardiac: Yes (STENTS PLACED 2005) Neurological: No Reproductive Disorders: No Female Reproductive Disorders: Denies Sexually Transmitted Disease: No HIV/AIDS: No Genitourinary: No UTI-Chronic Gastrointestinal: Yes (CONSTIPATION @ TIMES) Gastroesophageal Reflux, Chronic Constipation, Hiatal Hernia Musculoskeletal: Yes (FAILED KNEE REPLACEMENT, NEUROPATHY) Arthritis, Fibromyalgia, Chronic Back Pain Endocrine: Yes Diabetes, 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 Hearing Impairment: Denies Cancer: No Psychosocial: Yes (TAKES MEDS FOR DEPRESSION) Depression Integumentary: Yes (DIABETIC ULCERS ON ARMS AND LEG) Blood Disorders: No Adverse Reaction/Blood Tranf: No Family Medical History Family history: Arthritis 03 FATHER 09 SISTER Family history: Cardiovascular disease 03 FATHER Family history: Diabetes mellitus 03 MOTHER 09 BROTHER Family history: Gastrointestinal disease 09 BROTHER Family history: Hypertension 03 FATHER 03 MOTHER History of - respiratory disease 03 FATHER Psychotic disorder 03 MOTHER Physical Exam Vital Signs Vital Signs - First Documented 08/13/22 19:16 Temp 36.7 Pulse 83 Resp 18 B/P (MAP) 144/43 (76) Pulse Ox 93 O2 Delivery Room Air Capillary Refill : Less Than 3 Seconds Height, Weight, BMI Height: 4'11.00" Weight: 235lbs. oz. [id number]; 39.98 BMI Method: General Appearance: Mild Distress HEENT: PERRL/EOMI Neck: Full Range of Motion, Normal Inspection Cardiovascular: Regular Rate, Rhythm, No Edema, Other (Systolic murmur) Respiratory: Chest Non Tender, Lungs Clear, Normal Breath Sounds Gastrointestinal: Normal Bowel Sounds, No Organomegaly Back: Normal Inspection, No CVA Tenderness, No Vertebral Tenderness, Decreased Range of Motion, Other (Midline scar of previous back surgery) Extremity: Normal Capillary Refill, Normal Inspection, Normal Range of Motion Neurologic/Psychiatric: Alert, Oriented x3, No Motor/Sensory Deficits, Normal Mood/Affect Skin: Normal Color, Warm/Dry Progress/Results/Core Measures Results/Orders Lab Results Laboratory Tests Test 08/13/22 19:20 08/13/22 19:43 08/13/22 20:56 Range/Units Urine Color YELLOW Urine Clarity CLEAR Urine pH 6.0 5-9 Urine Specific [place] <=1.005 1.016-1.022 Urine Protein NEGATIVE NEGATIVE Urine Glucose (UA) 3+ H NEGATIVE Urine Ketones NEGATIVE NEGATIVE Urine Nitrite NEGATIVE NEGATIVE Urine Bilirubin NEGATIVE NEGATIVE Urine Urobilinogen 0.2 < = 1.0 MG/DL Urine Leukocyte Esterase NEGATIVE NEGATIVE Urine RBC (Auto) NEGATIVE NEGATIVE Urine RBC 5-10 H /HPF Urine WBC 10-25 H /HPF Urine Squamous Epithelial Cells 10-25 H /HPF Urine Crystals NONE /LPF Urine Bacteria MODERATE H /HPF Urine Casts NONE /LPF Urine Mucus NEGATIVE /LPF Urine Culture Indicated YES White Blood Count 12.4 H 4.3-11.0 10^3/uL Red Blood Count 4.31 3.80-5.11 10^6/uL Hemoglobin 12.6 11.5-16.0 g/dL Hematocrit 36 35-52 % Mean Corpuscular Volume 84 80-99 fL Mean Corpuscular Hemoglobin 29 25-34 pg Mean Corpuscular Hemoglobin Concent 35 32-36 g/dL Red Cell Distribution Width 12.8 10.0-14.5 % Platelet Count 218 130-400 10^3/uL Mean Platelet Volume 11.3 9.0-12.2 fL Immature Granulocyte % (Auto) 0 % Neutrophils (%) (Auto) 70 42-75 % Lymphocytes (%) (Auto) 19 12-44 % Monocytes (%) (Auto) 9 0-12 % Eosinophils (%) (Auto) 1 0-10 % Basophils (%) (Auto) 0 0-10 % Neutrophils # (Auto) 8.7 H 1.8-7.8 10^3/uL Lymphocytes # (Auto) 2.4 1.0-4.0 10^3/uL Monocytes # (Auto) 1.1 H 0.0-1.0 10^3/uL Eosinophils # (Auto) 0.2 0.0-0.3 10^3/uL Basophils # (Auto) 0.1 0.0-0.1 10^3/uL Immature Granulocyte # (Auto) 0.0 0.0-0.1 10^3/uL Sodium Level 127 L 135-145 MMOL/L Potassium Level 3.1 L 3.6-5.0 MMOL/L Chloride Level 86 L 98-107 MMOL/L Carbon Dioxide Level 30 21-32 MMOL/L Anion Gap 11 5-14 MMOL/L Blood Urea Nitrogen 37 H 7-18 MG/DL Creatinine 1.33 H 0.60-1.30 MG/DL Estimat Glomerular Filtration Rate 42 BUN/Creatinine Ratio 28 Glucose Level 404 *H 70-105 MG/DL Calcium Level 9.5 8.5-10.1 MG/DL Corrected Calcium 10.0 8.5-10.1 MG/DL Total Bilirubin 0.5 0.1-1.0 MG/DL Aspartate Amino Transf (AST/SGOT) 20 5-34 U/L Alanine Aminotransferase (ALT/SGPT) 10 0-55 U/L Alkaline Phosphatase 86 40-136 U/L Total Protein 6.7 6.4-8.2 GM/DL Albumin 3.4 3.2-4.5 GM/DL Glucometer 328 H 70-110 MG/DL My Orders Orders - SHAUNA VAUGHN MD Ua Culture If Indicated (08/13/22 19:27) Urine Culture (08/13/22 19:20) Comprehensive Metabolic Panel (08/13/22 19:38) Ed Iv/Invasive Line Start (08/13/22 19:38) Cbc With Automated Diff (08/13/22 19:38) Ceftriaxone Iv/Im (Rocephin Iv/Im) (08/13/22 19:45) Ns Iv 500 Ml (Sodium Chloride 0.9%) (08/13/22 19:45) Ceftriaxone Pre-Mix (Rocephin Pre-Mix) (08/13/22 20:00) Ceftriaxone Pre-Mix (Rocephin Pre-Mix) (08/13/22 19:45) Potassium Chloride (Tablet) (K Dur Table (08/13/22 20:30) Acetaminophen Tablet (Tylenol Tablet) (08/13/22 20:30) Insulin (Regular) Human (Novolin R (Per (08/13/22 20:30) Medications Given in ED Current Medications Medications Dose Ordered Sig/Rima Route Start Time Stop Time Status Last Admin Dose Admin Acetaminophen 1,000 mg ONCE ONCE PO 08/13/22 20:30 08/13/22 20:31 DC 08/13/22 20:28 1,000 MG Ceftriaxone Sodium/Dextrose 50 ml @ 100 mls/hr ONCE ONCE IV 08/13/22 20:00 08/13/22 20:29 DC 08/13/22 19:49 100 MLS/HR Insulin Human Regular 5 unit ONCE ONCE IV 08/13/22 20:30 08/13/22 20:31 DC 08/13/22 20:28 5 UNIT Potassium Chloride 40 meq ONCE ONCE PO 08/13/22 20:30 08/13/22 20:31 DC 08/13/22 20:28 40 MEQ Vital Signs/I&O 08/13/22 08/13/22 19:16 20:57 Temp 36.7 36.7 Pulse 83 83 Resp 18 18 B/P (MAP) 144/43 (76) 144/43 Pulse Ox 93 93 O2 Delivery Room Air Room Air Blood Pressure Mean: 76 Progress Progress Note : Progress Note 77-year-old female patient with complaining of back pain and urinary frequency and dysuria. Patient had UTI with blood sugar of 404 and sodium of 127 and potassium of 3.1. Patient treated with 500 mL of normal saline, Rocephin, oral potassium and Tylenol with improvement of her condition. Patient states that she had 5 or 6 bottles of water today and advised to not drink too much water because she is on Lasix. Patient advised to follow-up with diabetic diet and take home medication. Patient advised to follow-up with primary care physician and return to ER as needed. Prescription for Flexeril and Bactrim was given. Departure Impression Primary Impression: Recurrent urinary tract infection Additional Impressions: Recurrent low back pain Uncontrolled diabetes mellitus Qualified Codes: E11.65 - Type 2 diabetes mellitus with hyperglycemia Hypokalemia Chronic renal insufficiency Qualified Codes: N18.9 - Chronic kidney disease, unspecified Dilutional hyponatremia Disposition: 01 HOME, SELF-CARE Condition: Improved Departure-Patient Inst. Decision time for Depature: 20:57 Referrals: JACQUELYN FALK MD (PCP/Family) Primary Care Physician Patient Instructions: Diabetic Meal Planning , Hyponatremia, Chronic kidney disease, Hypokalemia (DC), Low Back Pain ED, Urinary Tract Infection, Adult ED Add. Discharge Instructions: Follow-up with your primary care physician in 2 or 3-day for uncontrolled diabetes mellitus and frequent UTI Follow-up with diabetic diet May take [id number] Tylenol as needed for pain Return to ER as needed All discharge instructions reviewed with patient and/or family. Voiced understanding. Scripts Cyclobenzaprine HCl (Cyclobenzaprine HCl) 5 Mg Tablet 5 MG PO TID PRN for muscle pain, #20 TAB Prov: SHAUNA VAUGHN MD 08/13/22 Sulfamethoxazole/Trimethoprim (Bactrim Ds Tablet) 1 Each Tablet 1 EACH PO BID, #14 TAB Prov: SHAUNA VAUGHN MD 08/13/22 SHAUNA VAUGHN MD Aug 13, 2022 20:01
[2022-08-13 20:05] LABS: ALBUMIN 3.4 GM/DL (3.2-4.5); BILIRUBIN,TOTAL 0.5 MG/DL (0.1-1.0); CALCIUM 9.5 MG/DL (8.5-10.1); CREATININE SERUM 1.33 MG/DL (0.60-1.30); POTASSIUM 3.1 MMOL/L (3.6-5.0); TOTAL PROTEIN 6.7 GM/DL (6.4-8.2)
[2022-08-13] MEDS ORDERED: ACETAMINOPHEN 500 MG TAB (TYLENOL) PO ONE (20:30)
[2022-08-13] MEDS ORDERED: inSUlin (REGULAR) HUMAN 1 UNIT/0.01 ML (CHARGE PER UNIT) IV ONE (20:30)
[2022-08-13] MEDS ORDERED: KCL 20 MEQ TAB (K-DUR) PO ONE (20:30)
[2022-08-13] MEDS ORDERED: SULF1TAB38 PO (20:32)
[2022-08-13] MEDS ORDERED: CYCL5TAB PO (20:32)
[2022-08-13 20:57] VITALS: BP 144/43
== END 2022-08-13 20:59 | disposition home or self-care (01) ==
LOC: EDUNIT# 19:12 → ER FS 19:14
DX: N39.0 Urinary tract infection, site not specified (principal); I12.9 Hypertensive chronic kidney disease with stage 1 through stage 4 chronic kidney disease, or unspecified chronic kidney disease; E11.22 Type 2 diabetes mellitus with diabetic chronic kidney disease; E11.65 Type 2 diabetes mellitus with hyperglycemia; N18.9 Chronic kidney disease, unspecified; E87.6 Hypokalemia; E87.1 Hypo-osmolality and hyponatremia; M54.50 Low back pain, unspecified; G89.29 Other chronic pain; E11.622 Type 2 diabetes mellitus with other skin ulcer; L97.909 Non-pressure chronic ulcer of unspecified part of unspecified lower leg with unspecified severity; L98.499 Non-pressure chronic ulcer of skin of other sites with unspecified severity; E11.39 Type 2 diabetes mellitus with other diabetic ophthalmic complication; H40.9 Unspecified glaucoma; G47.30 Sleep apnea, unspecified; Z99.81 Dependence on supplemental oxygen; Z79.4 Long term (current) use of insulin; Z28.310 Unvaccinated for COVID-19
CPT/HCPCS: 36415; 80053; 81000; 82947; 85025; 87088